=== PATIENT | male | born 1965 | race Caucasian/White ===

== ENCOUNTER 2016-07-24 12:26 | Emergency (ER) | payer MEDICARE ==
[2016-07-24] MEDS ORDERED: CLONIDINE HCL 0.1 MG TABLET PO ONE (13:12)
[2016-07-24] MEDS ORDERED: KETOROLAC TROMETHAMINE 60 MG/2 ML SDV IM ONE (13:12)
--- NOTE | 2016-07-24 13:15 | ER Document Report ---
ED Blood Pressure Problem - General Chief Complaint: High Blood Pressure Stated Complaint: BLOOD PRESSURE PROBLEM Time Seen by Provider: 07/24/16 13:03 Notes: Patient is a 51-year-old male, past medical history hypertension, chronic back pain, presents from the outpatient surgery center after his blood pressure was 171/103 prior to his ankle surgery. They would not do his surgery for blood pressure. He has not taken his clonidine for the past year and does not have a primary care physician. In addition, he noticed a left breast lump over the past few weeks. He denies numbness, tingling, chest pain, abdominal pain, nausea , vomiting, weakness, numbness or headache. TRAVEL OUTSIDE OF THE [place] IN LAST 30 DAYS: No - Related Data Allergies/Adverse Reactions: aspirin Allergy (Unknown, Verified 07/24/16 12:31) GI upset Past Medical History - General Information source: Patient - Social History Smoking Status: Current Every Day Smoker Family History: Hypertension, Malignancy. denies: CAD, COPD, CVA, DM, Hyperlipidemia, Thyroid Disfunction Patient has suicidal ideation: No Patient has homicidal ideation: No - Past Medical History Cardiac Medical History: Reports: Hx Hypertension Denies: Hx Coronary Artery Disease, Hx Heart Attack Pulmonary Medical History: Denies: Hx Asthma, Hx Bronchitis, Hx COPD, Hx Pneumonia Neurological Medical History: Denies: Hx Cerebrovascular Accident, Hx Seizures Renal/ Medical History: Denies: Hx Peritoneal Dialysis GI Medical History: Reports: Hx Gastritis, Hx Gastroesophageal Reflux Disease Musculoskeltal Medical History: Reports Hx Arthritis, Reports Hx Musculoskeletal Deformity, Reports Hx Musculoskeletal Trauma - ribs nose fingers and toes Skin Medical History: Reports Hx Cellulitis Psychiatric Medical History: Reports: Hx Anxiety, Hx Depression, Hx Schizoaffective Disorder, Hx Schizophrenia Traumatic Medical History: Reports: Hx Fractures Past Surgical History: Reports: Hx Orthopedic Surgery - left knee shrapnil removed - Immunizations Hx Diphtheria, Pertussis, Tetanus Vaccination: No Review of Systems - Review of Systems Notes: REVIEW OF SYSTEMS: CONSTITUTIONAL: -fevers, -chills EENT: -eye pain, -difficulty swallowing, -nasal congestion CARDIOVASCULAR:-chest pain, -syncope. RESPIRATORY: -cough, -SOB GASTROINTESTINAL: -abdominal pain, -nausea, -vomiting, -diarrhea GENITOURINARY: -dysuria, -hematuria MUSCULOSKELETAL: -back pain, -neck pain SKIN: +left breast lump, -rash or skin lesions. HEMATOLOGIC: -easy bruising or bleeding. LYMPHATIC: -swollen, enlarged glands. NEUROLOGICAL: -altered mental status or loss of consciousness, -headache, - neurologic symptoms PSYCHIATRIC: -anxiety, -depression. ALL OTHER SYSTEMS REVIEWED AND NEGATIVE. Physical Exam - Vital signs Vitals: Temp Pulse Resp BP Pulse Ox 98.0 F 102 H 18 171/114 H 99 07/24/16 12:35 07/24/16 12:35 07/24/16 12:35 07/24/16 12:35 07/24/16 12:35 - Notes Notes: PHYSICAL EXAMINATION: GENERAL: Well-appearing, well-nourished and in no acute distress. HEAD: Atraumatic, normocephalic. EYES: Pupils equal round and reactive to light, extraocular movements intact, sclera anicteric, conjunctiva are normal. ENT: nares patent, oropharynx clear without exudates. Moist mucous membranes. NECK: Normal range of motion, supple without lymphadenopathy LUNGS: Breath sounds clear to auscultation bilaterally and equal. No wheezes rales or rhonchi. HEART: Regular rate and rhythm without murmurs ABDOMEN: Soft, nontender, normoactive bowel sounds. No guarding, no rebound. No masses appreciated. EXTREMITIES: Normal range of motion, no pitting or edema. No cyanosis. NEUROLOGICAL: Cranial nerves grossly intact. Normal speech, normal gait. Normal sensory and motor exams. PSYCH: Normal mood, normal affect. SKIN: Left breast lump, warm, Dry, normal turgor, no rashes or lesions noted. Course - Re-evaluation Re-evalutation: Pt with asymptomatic hypertension. He has not taken his clonidine for the past year. We will switch him to amlodipine because this will not cause rebound hypertension. Also instructed him to follow-up with the health center for further evaluation of his blood pressure and breast lump. - Vital Signs Vital signs: Temp Pulse Resp BP Pulse Ox 98.0 F 102 H 18 171/114 H 99 07/24/16 12:35 07/24/16 12:35 07/24/16 12:35 07/24/16 12:35 07/24/16 12:35 Discharge - Discharge Clinical Impression: Mass of breast Hypertension Qualifiers: Hypertension type: unspecified secondary hypertension Qualified Code(s): I15.9 - Secondary hypertension, unspecified Condition: Stable Disposition: HOME, SELF-CARE Additional Instructions: HIGH BLOOD PRESSURE REQUIRING TREATMENT: Your blood pressure is high. This is called "hypertension." Today's reading was 171/104 (normal is less than 140/90). Your history and exam suggest that this is not a temporary problem. You need treatment of your blood pressure. If left untreated, high blood pressure greatly increases your risk of heart attack and stroke. Please don't ignore this problem. If you have blood pressure medicine but aren't using it regularly, start taking it again. Some simple things you can do to help are: Get some aerobic exercise for at least 20 minutes on a daily basis. (See your doctor before beginning any new exercise program.) Eat a low-fat diet. Lose excess weight. Avoid salty foods and avoid adding salt to any of the foods you eat. Avoid diet pills, decongestants, "energizing" herbs, and other medicines that elevate blood pressure. There are many different medicines that treat blood pressure. If your medication causes unpleasant side effects, call your doctor. There are others you can try. Treating hypertension is a life-long investment in your health. CLONIDINE (CATAPRES): Clonidine is blood-pressure medicine. It works in your brain, making the nervous system relax the blood vessels. This medicine can also be used for symptoms of narcotic withdrawal. Clonidine frequently causes dry mouth, drowsiness, and dizziness. These symptoms go away as you continue to use it. Rest for the first couple of days. Don't drive or use machinery until you're back to normal. Never stop clonidine suddenly! There can be a "rebound" severe increase in blood pressure, headache, and agitation. Be sure you always have enough of the medicine. Call the doctor if you have any new symptoms such as skin rash, weakness, severe lightheadedness, chest pain, headache, or depression. CALCIUM CHANNEL BLOCKERS: A medication of the calcium channel nikolay type has been prescribed for you. Examples of this type of medicine are Calan, Isoptin, Procardia, and Cardizem. These medicines have a variety of uses, including prevention of angina attacks, treatment of blood pressure, regulation of certain heart rhythm problems, and prevention of migraine headaches. Calcium channel blockers work by interfering with the flow of calcium in cell membranes. This results in dilation of blood vessels, and slowing of electrical conduction in the heart. A slight dizziness (due to a fall in blood pressure) may occur with the first dose, and sometimes even with later doses. This may make you prone to dizziness if you stand up suddenly. Call the doctor if lightheadedness is severe, or if you develop palpitations, shortness of breath, or any other new or alarming symptoms. FOLLOW-UP CARE: If you have been referred to a physician for follow-up care, call the physician s office for an appointment as you were instructed or within the next two days. If you experience worsening or a significant change in your symptoms, notify the physician immediately or return to the Emergency Department at any time for re-evaluation. Prescriptions: Amlodipine Besylate 5 mg PO DAILY #30 tab Referrals: [facility] [NO LOCAL MD] - Follow up as needed
[2016-07-24 13:39] VITALS: BP 175/121
== END 2016-07-24 13:47 | disposition home or self-care (01) ==
LOC: ER 12:26
DX: N63 Unspecified lump in breast (principal); I10 Essential (primary) hypertension; G89.29 Other chronic pain; M54.9 Dorsalgia, unspecified; F17.200 Nicotine dependence, unspecified, uncomplicated; Z88.6 Allergy status to analgesic agent
CPT/HCPCS: 99283; 96372; A9270; J1885

== ENCOUNTER 2016-09-21 12:53 | Emergency (ER) | payer MEDICARE ==
[2016-09-21] MEDS ORDERED: LIDOCAINE 5% (700 MG) TRANSDERMAL ADH..PATCH TP ONE (13:45)
[2016-09-21] MEDS ORDERED: KETOROLAC TROMETHAMINE 60 MG/2 ML SDV IM ONE (13:45)
--- NOTE | 2016-09-21 14:25 | ER Document Report ---
HPI - HPI Patient complains to provider of: back and knee pain Onset: Other - 4 days Onset/Duration: Persistent Quality of pain: Achy Pain Level: 4 Context: Patient states that he has a history of chronic low back pain as well as chronic knee pain due to arthritis. Patient states that he has a history of herniated disc in his lower back. Patient denies any new injury or trauma. Patient states that pain is typical of flare up that he has had in the past. Patient states that he became homeless 4 days ago and has been sleeping on hard ground. Patient also reports that the weather due to the increase rain has caused flareups of his arthritis pain. Patient denies any fever or recent illness. Associated Symptoms: Other - Low back pain, right knee joint pain. denies: Fever Exacerbated by: Movement Relieved by: Denies Similar symptoms previously: Yes Recently seen / treated by doctor: No - ROS ROS below otherwise negative: Yes Systems Reviewed and Negative: Yes All other systems reviewed and negative - NEURO Neurology: DENIES: Headache, Weakness - CARDIOVASCULAR Cardiovascular: DENIES: Chest pain - RESPIRATORY Respiratory: DENIES: Coughing - GASTROINTESTINAL Gastrointestinal: DENIES: Nausea - MUSCULOSKELETAL Musculoskeletal: REPORTS: Extremity pain, Back Pain - DERM Skin Color: Normal Past Medical History - General Information source: Patient - Social History Smoking Status: Current Every Day Smoker Chew tobacco use (# tins/day): No Frequency of alcohol use: Heavy Drug Abuse: None Occupation: None Lives with: Homeless Family History: Hypertension, Malignancy. denies: CAD, COPD, CVA, DM, Hyperlipidemia, Thyroid Disfunction Patient has suicidal ideation: No Patient has homicidal ideation: No - Past Medical History Cardiac Medical History: Reports: Hx Hypertension Denies: Hx Coronary Artery Disease, Hx Heart Attack Pulmonary Medical History: Denies: Hx Asthma, Hx Bronchitis, Hx COPD, Hx Pneumonia Neurological Medical History: Denies: Hx Cerebrovascular Accident, Hx Seizures Renal/ Medical History: Denies: Hx Peritoneal Dialysis GI Medical History: Reports: Hx Gastritis, Hx Gastroesophageal Reflux Disease Musculoskeltal Medical History: Reports Hx Arthritis, Reports Hx Musculoskeletal Deformity, Reports Hx Musculoskeletal Trauma - ribs nose fingers and toes Skin Medical History: Reports Hx Cellulitis Psychiatric Medical History: Reports: Hx Anxiety, Hx Depression, Hx Schizoaffective Disorder, Hx Schizophrenia Traumatic Medical History: Reports: Hx Fractures Past Surgical History: Reports: Hx Orthopedic Surgery - left knee shrapnil removed - Immunizations Hx Diphtheria, Pertussis, Tetanus Vaccination: No Vertical Provider Document - CONSTITUTIONAL Agree With Documented VS: Yes Exam Limitations: No Limitations General Appearance: WD/WN, No Apparent Distress - INFECTION CONTROL TRAVEL OUTSIDE OF THE [place] IN LAST 30 DAYS: No - HEENT HEENT: Atraumatic, Normocephalic - NECK Neck: Normal Inspection, Supple. negative: Lymphadenopathy-Left, Lymphadenopathy-Right - RESPIRATORY Respiratory: Breath Sounds Normal, No Respiratory Distress O2 Sat by Pulse Oximetry: 97 - CARDIOVASCULAR Cardiovascular: Regular Rhythm, No Murmur, Tachycardia - BACK Back: Abnormal Inspection - Lower lumbar tenderness, no step-off or deformity. negative: CVA Tenderness-Right, CVA Tenderness-Left - MUSCULOSKELETAL/EXTREMETIES Musculoskeletal/Extremeties: MAEW, FROM, Tender - Generalized right knee joint tenderness, no effusion, no laxity with varus or valgus maneuvers, normal skin color and temperature overlying joint, No Edema. negative: Eccymosis - NEURO Level of Consciousness: Awake, Alert, Appropriate Motor/Sensory: No Motor Deficit, No Sensory Deficit Notes: Negative straight leg test bilaterally, no footdrop, no saddle anesthesia - DERM Integumentary: Warm, Dry, No Rash Course - Re-evaluation Re-evalutation: 09/21/16 14:21 The patient has been informed that they may have pre-hypertension or hypertension based on a blood pressure reading in the emergency department. I recommend that patient call the primary care provider listed on their discharge instructions or a physician of their choice by this week to arrange follow-up for further evaluation of possible pre-hypertension her hypertension. 09/21/16 When discussing patient's elevated heart rate, patient states that his heart rate is fast because he feels slightly anxious because he is concerned that he may have body odor, patient denies any palpitations, dyspnea, or chest pain. - Vital Signs Vital signs: Temp Pulse Resp BP Pulse Ox 98.0 F 117 H 18 152/110 H 97 09/21/16 13:14 09/21/16 13:14 09/21/16 13:14 09/21/16 13:14 09/21/16 13:14 Discharge - Discharge Clinical Impression: Hx of chronic arthritis, Hx of essential hypertension Chronic back pain Qualifiers: Back pain location: low back pain Back pain laterality: midline Sciatica presence: without sciatica Qualified Code(s): M54.5 - Low back pain Knee pain, chronic Qualifiers: Laterality: right Qualified Code(s): M25.561 - Pain in right knee Condition: Stable Disposition: HOME, SELF-CARE Instructions: Arthritis ([facility]), Chronic Back Pain ([facility]), Low Back Pain ([facility]), Ultram ([facility]), Family Physicians / Practices Additional Instructions: Return immediately for any new or worsening symptoms Followup with your primary care provider, call tomorrow to make a followup appointment Prescriptions: Naproxen [Naprosyn 250 Nmg Tablet] 1 tab PO BID #14 tablet Tramadol HCl [Ultram 50 mg Tablet] 50 mg PO ASDIR PRN #12 tablet PRN Reason: Forms: Elevated Blood Pressure Referrals: LIUDMILA CLEARY MD [Primary Care Provider] - Follow up tomorrow [facility] [Provider Group] - Follow up as needed
[2016-09-21 14:40] VITALS: BP 147/96
== END 2016-09-21 14:40 | disposition home or self-care (01) ==
LOC: ER 12:53
DX: G89.29 Other chronic pain (principal); M25.561 Pain in right knee; M54.5 Low back pain; M17.11 Unilateral primary osteoarthritis, right knee; M47.9 Spondylosis, unspecified; I10 Essential (primary) hypertension; F41.9 Anxiety disorder, unspecified; R00.0 Tachycardia, unspecified; F17.200 Nicotine dependence, unspecified, uncomplicated; Z59.0 Homelessness
CPT/HCPCS: 99283; 96372; J1885

== ENCOUNTER 2016-10-25 09:27 | Emergency (ER) | payer MEDICARE, MEDICAID ==
--- NOTE | 2016-10-25 11:05 | ER Document Report ---
HPI - HPI Pain Level: 5 Context: 51 yo male states that he has a history of chronic low back pain as well as chronic knee pain due to arthritis. Patient states that he has a history of herniated disc in his lower back. Patient denies any new injury or trauma. Has been climbing stairs in his new apartment and this has exacerbated his pain. Patient states that pain is typical of flare up that he has had in the past. no fever, radiculopathy, paresthesia, bowel/bladder dysfunction. pt seen in ED last month for same. reports he gets pain next month and can go see his doctor Associated Symptoms: None Exacerbated by: Movement, Walking Relieved by: Denies Similar symptoms previously: Yes Recently seen / treated by doctor: Yes - ROS Systems Reviewed and Negative: Yes All other systems reviewed and negative - CONSTITUTIONAL Constitutional: DENIES: Fever, Chills - MUSCULOSKELETAL Musculoskeletal: REPORTS: Back Pain - DERM Skin Color: Normal - NURSING COMMENTS Comment: pt c/c chronic back pain, started after he was moving into an apartment with a lot of steps . pt stated back pain radiates down left leg Past Medical History - General Information source: Patient - Social History Smoking Status: Current Every Day Smoker Cigarette use (# per day): No Chew tobacco use (# tins/day): No Frequency of alcohol use: None Drug Abuse: None Lives with: Alone Family History: Hypertension, Malignancy. denies: CAD, COPD, CVA, DM, Hyperlipidemia, Thyroid Disfunction Patient has suicidal ideation: No Patient has homicidal ideation: No - Past Medical History Cardiac Medical History: Reports: Hx Hypertension Denies: Hx Coronary Artery Disease, Hx Heart Attack Pulmonary Medical History: Denies: Hx Asthma, Hx Bronchitis, Hx COPD, Hx Pneumonia Neurological Medical History: Denies: Hx Cerebrovascular Accident, Hx Seizures Renal/ Medical History: Denies: Hx Peritoneal Dialysis GI Medical History: Reports: Hx Gastritis, Hx Gastroesophageal Reflux Disease Musculoskeltal Medical History: Reports Hx Arthritis, Reports Hx Musculoskeletal Deformity, Reports Hx Musculoskeletal Trauma - ribs nose fingers and toes Skin Medical History: Reports Hx Cellulitis Psychiatric Medical History: Reports: Hx Anxiety, Hx Depression, Hx Schizoaffective Disorder, Hx Schizophrenia Traumatic Medical History: Reports: Hx Fractures Past Surgical History: Reports: Hx Orthopedic Surgery - left knee shrapnil removed - Immunizations Hx Diphtheria, Pertussis, Tetanus Vaccination: No Vertical Provider Document - CONSTITUTIONAL Agree With Documented VS: Yes Exam Limitations: No Limitations General Appearance: WD/WN, No Apparent Distress - INFECTION CONTROL TRAVEL OUTSIDE OF THE [place] IN LAST 30 DAYS: No - HEENT HEENT: Atraumatic, PERRLA - NECK Neck: Normal Inspection, Supple - RESPIRATORY O2 Sat by Pulse Oximetry: 96 - CARDIOVASCULAR Cardiovascular: Regular Rate, Regular Rhythm - BACK Back: Abnormal Inspection - lumbar spinal and paraspinal tenderness - MUSCULOSKELETAL/EXTREMETIES Musculoskeletal/Extremeties: MARITZA JURADO - NEURO Level of Consciousness: Awake, Alert, Appropriate - DERM Integumentary: Warm, Dry Course - Re-evaluation Re-evalutation: 10/25/16 11:10 location and character of pain is consistant with pts chronic pain. pt is afebrile, nontoxic. able to walk without difficulty. no neurologic deficits or red flags identified. no emergent imaging indicated today. pt stable for discharge 10/25/16 11:14 pt medicated with Toradol IM. ASA listed as allergy. pt reports that ASA will upset his stomach if he doesnt eat. - Vital Signs Vital signs: Temp Pulse Resp BP Pulse Ox 98.8 F 91 20 166/106 H 96 10/25/16 09:47 10/25/16 09:47 10/25/16 09:47 10/25/16 09:47 10/25/16 09:47 Discharge - Discharge Clinical Impression: Chronic back pain Qualifiers: Back pain location: low back pain Back pain laterality: midline Sciatica presence: without sciatica Qualified Code(s): M54.5 - Low back pain; G89.29 - Other chronic pain Condition: Stable Disposition: HOME, SELF-CARE Instructions: Ice Packs ([facility]), Warm Packs ([facility]), Muscle Relaxers ([facility]), Ibuprofen (General) ([facility]) Additional Instructions: You are having an exacerbation of your chronic back pain Take medications as prescribed Follow up with primary care for further treatment, ER does not manage chronic pain Prescriptions: Ibuprofen [Motrin 800 Mg Tablet] 800 mg PO Q6H #20 tablet Methocarbamol [Robaxin 500 Mg Tablet] 1,000 mg PO Q6 #30 tablet
[2016-10-25] MEDS ORDERED: KETOROLAC TROMETHAMINE 60 MG/2 ML SDV IM ONE (11:12)
[2016-10-25 11:33] VITALS: BP 170/98
== END 2016-10-25 11:29 | disposition home or self-care (01) ==
LOC: ER 09:27
DX: G89.29 Other chronic pain (principal); G54.5 Neuralgic amyotrophy; I10 Essential (primary) hypertension; F17.200 Nicotine dependence, unspecified, uncomplicated
CPT/HCPCS: 99283; 96372; J1885

== ENCOUNTER 2017-06-18 11:02 | Emergency (ER) | payer MEDICARE, MEDICAID ==
[2017-06-18] MEDS ORDERED: KETOROLAC TROMETHAMINE 60 MG/2 ML SDV IM ONE (12:39)
[2017-06-18] MEDS ORDERED: DEXAMETHASONE SOD PHOS INJ 10 MG/1 ML VIAL IM ONE (12:40)
--- NOTE | 2017-06-18 12:48 | ER Document Report ---
ED General - General Chief Complaint: Rash Stated Complaint: POSSIBLE RASH Time Seen by Provider: 06/18/17 11:41 Mode of Arrival: Ambulatory Information source: Patient TRAVEL OUTSIDE OF THE [place] IN LAST 30 DAYS: No - HPI Notes: 52-year-old male presents today with complaints of a rash on his head and on his forearms that has been occurring for the last 3 months. Denies any fevers or chills. Eating and drinking without issues. Patient reports rash is itchy, he tried some Selsun Blue but it did not help. Denies any new travel, new medications or new foods. states pain is patient reports he has chronic back pain, has disc herniations and has been in pain, has tried ibuprofen without relief. Has been using ibuprofen for pain control, pain is 5/10, throbbing. Denies fevers, chills, chest pain,palpitations, shortness of breath, dyspnea, nausea, vomiting, diarrhea, abdominal pain, hematuria,blurred vision, double vision, loss of vision, speech changes, LH, dizziness, syncope, headaches, wheezing, ST, URI, neck pain, weakness, bowel or bladder dysfunction, saddle anesthesia, numbness or tingling in bilateral upper or lower extremities equally , muscle paralysis, weakness in bilateral upper or lower extremities equally. Denies IV drug use. - Related Data Allergies/Adverse Reactions: aspirin Allergy (Unknown, Verified 06/18/17 11:03) GI upset Past Medical History - General Information source: Patient - Social History Smoking Status: Current Every Day Smoker Family History: Hypertension, Malignancy. denies: CAD, COPD, CVA, DM, Hyperlipidemia, Thyroid Disfunction - Past Medical History Cardiac Medical History: Reports: Hx Hypertension Denies: Hx Coronary Artery Disease, Hx Heart Attack Pulmonary Medical History: Denies: Hx Asthma, Hx Bronchitis, Hx COPD, Hx Pneumonia Neurological Medical History: Denies: Hx Cerebrovascular Accident, Hx Seizures Renal/ Medical History: Denies: Hx Peritoneal Dialysis GI Medical History: Reports: Hx Gastritis, Hx Gastroesophageal Reflux Disease Musculoskeltal Medical History: Reports Hx Arthritis, Reports Hx Musculoskeletal Deformity, Reports Hx Musculoskeletal Trauma - ribs nose fingers and toes Skin Medical History: Reports Hx Cellulitis Psychiatric Medical History: Reports: Hx Anxiety, Hx Depression, Hx Schizoaffective Disorder, Hx Schizophrenia Traumatic Medical History: Reports: Hx Fractures Past Surgical History: Reports: Hx Orthopedic Surgery - left knee shrapnil removed - Immunizations Hx Diphtheria, Pertussis, Tetanus Vaccination: No Review of Systems - Review of Systems Notes: ALL OTHER SYSTEMS REVIEWED AND NEGATIVE. Dictation was performed using [employer] ([email or web address]) voice recognition software PHYSICAL EXAMINATION: GENERAL: Well-appearing, well-nourished and in no acute distress. HEAD: Atraumatic, normocephalic. EYES: Pupils equal round and reactive to light, extraocular movements intact, sclera anicteric, conjunctiva are normal. ENT: Nares patent, oropharynx clear without exudates. Moist mucous membranes. NECK: Normal range of motion, supple without lymphadenopathy LUNGS: Breath sounds clear to auscultation bilaterally and equal. No wheezes rales or rhonchi. HEART: Regular rate and rhythm without murmurs ABDOMEN: Soft, nontender, nondistended abdomen. No guarding, no rebound. No masses appreciated. Musculoskeletal: Normal range of motion, no pitting or edema. No cyanosis. Pain with flexion and extension at 30 degrees, negative straight leg test bilaterally. Normal hip rotation. DTR +2 in BLE equally. Strength 5 out of 5 both distally and proximally to bilateral lower extremities normal motor and sensory function in BLE equally. Distal pulses + 2 BLE equally. Noted paraspinal tenderness near L2 and L3. No spinal tenderness. No CVA tenderness bilaterally. Femoral pulses + 2 bilaterally and equally. No abrasions, scars, lacerations, ecchymosis of any recent trauma. normal gait. NEUROLOGICAL: Cranial nerves grossly intact. Normal speech, normal gait. Normal sensory, motor exams PSYCH: anxious SKIN: Warm, Dry, normal turgor, no rashes or lesions noted. Constitutional: No symptoms reported EENT: No symptoms reported Cardiovascular: No symptoms reported Respiratory: No symptoms reported Gastrointestinal: No symptoms reported Genitourinary: No symptoms reported Male Genitourinary: No symptoms reported Musculoskeletal: No symptoms reported Skin: See HPI Hematologic/Lymphatic: No symptoms reported Neurological/Psychological: Anxiety Physical Exam - Vital signs Vitals: Temp Pulse Resp BP Pulse Ox 97.9 F 109 H 20 154/110 H 96 06/18/17 11:25 06/18/17 11:25 06/18/17 11:25 06/18/17 11:25 06/18/17 11:25 Course - Re-evaluation Re-evalutation: 06/18/17 12:54 After performing a Medical Screening Examination, I estimate there is LOW risk for any life threatening rash. At this time the patient looks extremely well and there are no signs of systemic infection, however this may change at any time and the rash may change. I have reevaluated this patient multiple times and no significant life threatening changes are noted. The patient and I have discussed the diagnosis and risks, and we agree with discharging home with close follow-up with the understanding that symptoms and presentations can change. We also discussed returning to the Emergency Department immediately if new or worsening symptoms occur. We have discussed the symptoms which are most concerning (e.g., changing or worsening pain, fever, numbness, weakness, cool or painful digits) that necessitate immediate return. Presentation of a well appearing patient complaining of acute on chronic back pain. No rapid progression of symptoms, systemic symptoms including fevers, chills, weight loss, history of recent bacterial infection, bilateral symptoms, numbness, weakness, difficulty walking, urinary retention or bowel incontinence , personal history of cancer, immunosuppression, diabetes, known AAA, or history of IV drug use. Exam is without point tenderness over vertebral bodies , pulsatile abdominal mass, and patient has symmetric and intact lower extremity strength, sensation, and reflexes without clonus. 2+ symmetric medial malleolar and dorsalis pedis pulses Based on history and physical, I have a very low suspicion of a concerning etiology of pain including epidural compression syndrome, spinal infection, transverse myelitis, malignancy, abdominal aortic aneurysm, renal colic, acute lower extremity claudication, neurogenic claudication, ankylosing spondylitis, or other intra-abdominal process. Due to absence of concerning risk factors in history and physical as well as absence of rapidly progressive, severe, or bilateral symptoms, will defer imaging at this point. Plan to manage conservatively with outpatient analgesia, analgesia, and physical therapy. - Acetaminophen 650 q 4 + ibuprofen 600 q 6 - Continue normal daily activities as tolerated by pain - Provide with standard musculoskeletal back pain exercise instructions - Instruct to follow up with primary care provider if symptoms not improving - Provide careful return precautions and concerning symptoms to watch for. - Vital Signs Vital signs: Temp Pulse Resp BP Pulse Ox 98.4 F 98 20 186/94 H 98 06/18/17 12:22 06/18/17 12:22 06/18/17 12:22 06/18/17 12:22 06/18/17 12:22 Discharge - Discharge Clinical Impression: Eczema of scalp, Chronic back pain Condition: Good Disposition: HOME, SELF-CARE Instructions: Atopic Dermatitis (Eczema) ([facility]) Additional Instructions: Return immediately for any new or worsening symptoms. Follow up with primary care provider, call tomorrow to make followup appointment. Prescriptions: Prednisone [Deltasone 20 mg Tablet] 3 tab PO DAILY 5 Days #15 tablet Triamcinolone Acetonide 1 applic TP BID #80 cream..g. Forms: Return to Work Referrals: KIRSTIN GAUTAM DO [ACTIVE STAFF] - Follow up in 1 week BRITNEY SOMMERS MD [ACTIVE STAFF] - Follow up in 3-5 days
[2017-06-18 13:14] VITALS: BP 186/94
== END 2017-06-18 13:14 | disposition home or self-care (01) ==
LOC: ER 11:02
DX: L30.9 Dermatitis, unspecified (principal); G89.29 Other chronic pain; M54.9 Dorsalgia, unspecified; Z88.6 Allergy status to analgesic agent; F17.200 Nicotine dependence, unspecified, uncomplicated; I10 Essential (primary) hypertension
CPT/HCPCS: 99282; 96372; J1885; J1100

== ENCOUNTER 2017-08-25 09:40 | Emergency (ER) | payer MEDICAID, MEDICARE ==
[2017-08-25] MEDS ORDERED: DEXAMETHASONE SOD PHOS INJ 10 MG/1 ML VIAL IM ONE (10:56)
[2017-08-25] MEDS ORDERED: LIDOCAINE 5% (700 MG) TRANSDERMAL ADH..PATCH TP ONE (10:57)
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
[2017-08-25 11:19] VITALS: BP 152/111
== END 2017-08-25 11:19 | disposition home or self-care (01) ==
LOC: ER 09:40
DX: L40.9 Psoriasis, unspecified (principal); M54.41 Lumbago with sciatica, right side; M54.42 Lumbago with sciatica, left side; G89.29 Other chronic pain; F17.210 Nicotine dependence, cigarettes, uncomplicated; Z88.6 Allergy status to analgesic agent
CPT/HCPCS: 99283; J1100

== ENCOUNTER 2019-08-21 10:24 | Emergency (ER) | payer MEDICARE, MEDICAID ==
--- NOTE | 2019-08-21 11:20 | ER Document Report ---
Entered by ASHLEY DOMINGUEZ SCRIBE 08/21/19 1111 Acting as scribe for:EDDI VACA MD ED General - General Chief Complaint: Abdominal Pain Stated Complaint: ABDOMINAL PAIN,SWELLING Time Seen by Provider: 08/21/19 10:50 Primary Care Provider: BRITNEY SOMMERS MD [Primary Care Provider] - Follow up as needed Mode of Arrival: Ambulatory Information source: Patient Notes: This 54 year old male patient presents to the emergency department today with complaints of an area of swelling and pain that he refers to as a "mass" for the last several years. Patient reports that it has never been worked up before. Patient had a chest CTA done on 01/29/2016 which went down below the area of concern today. Patient has a history of GERD and has not been taking any Prilosec recently because he ran out. Patient demanding a chest xray. TRAVEL OUTSIDE OF THE [place] IN LAST 30 DAYS: No - Related Data Allergies/Adverse Reactions: aspirin Allergy (Unknown, Verified 08/21/19 10:36) GI upset Past Medical History - General Information source: Patient - Social History Smoking Status: Current Every Day Smoker Cigarette use (# per day): Yes Frequency of alcohol use: Social Drug Abuse: None Lives with: Family Family History: Hypertension, Malignancy - Past Medical History Cardiac Medical History: Reports: Hx Hypertension GI Medical History: Reports: Hx Gastritis, Hx Gastroesophageal Reflux Disease Musculoskeletal Medical History: Reports Hx Arthritis, Reports Hx Musculoskeletal Deformity, Reports Hx Musculoskeletal Trauma - ribs nose fingers and toes Skin Medical History: Reports Hx Cellulitis Psychiatric Medical History: Reports: Hx Anxiety, Hx Bipolar Disorder, Hx Depression, Hx Schizoaffective Disorder Traumatic Medical History: Reports: Hx Fractures Past Surgical History: Reports: Hx Orthopedic Surgery - left knee shrapnil removed - Immunizations Hx Diphtheria, Pertussis, Tetanus Vaccination: No Review of Systems - Review of Systems Constitutional: No symptoms reported EENT: No symptoms reported Cardiovascular: No symptoms reported Respiratory: No symptoms reported Gastrointestinal: See HPI, Abdominal pain Genitourinary: No symptoms reported Male Genitourinary: No symptoms reported Musculoskeletal: No symptoms reported Skin: No symptoms reported Hematologic/Lymphatic: No symptoms reported Neurological/Psychological: No symptoms reported -: Yes All other systems reviewed and negative Physical Exam - Vital signs Vitals: Temp Pulse Resp BP Pulse Ox 98.7 F 73 22 H 152/131 H 97 06/18/20 10:29 08/21/19 10:29 08/21/19 10:29 08/21/19 10:29 08/21/19 10:29 - Notes Notes: Physical Exam: General: Alert, appears well. HEENT: Normocephalic. Atraumatic. PERRL. Extraocular movements intact. Oropharynx clear. Neck: Supple. Non-tender. Respiratory: No respiratory distress. Clear and equal breath sounds bilaterally. Cardiovascular: Regular rate and rhythm. Abdominal: Easily reducible umbilical hernia. Patient indicates he has pain with palpation of the epigastrium. No distension. Normal Bowel Sounds. Back: No gross abnormalities. Extremities: Moves all four extremities. Upper extremities: Normal inspection. Normal ROM. Lower extremities: Normal inspection. No edema. Normal ROM. Neurological: Normal cognition. AAOx4. Normal speech. Psychological: Normal affect. Normal Mood. Skin: Warm. Dry. Normal color. Course - Vital Signs Vital signs: Temp Pulse Resp BP Pulse Ox 98.7 F 73 22 H 152/131 H 97 08/21/19 10:35 08/21/19 10:29 08/21/19 10:29 08/21/19 10:29 08/21/19 10:29 - Laboratory Result Diagrams: 08/21/19 11:15 08/21/19 11:15 Laboratory results interpreted by me: 08/21/19 08/21/19 08/21/19 11:15 11:15 11:15 RDW 15.9 H Sodium 134.5 L Carbon Dioxide 21 L Total Bilirubin 1.5 H Urine Protein 100 H - Diagnostic Test Radiology reviewed: Image reviewed, Reports reviewed - Acute abdominal series shows nonspecific bowel gas pattern with a few scattered small bowel air-fluid levels. Discharge - Discharge Clinical Impression: Small bowel ileus Abdominal pain Qualifiers: Abdominal location: upper abdomen, unspecified Qualified Code(s): R10.10 - Upper abdominal pain, unspecified Condition: Stable Disposition: HOME, SELF-CARE Additional Instructions: Abdominal Pain There are many causes of abdominal pain. Pain can mean a serious problem requiring surgery (such as appendicitis). It can also be an innocent problem that goes away on its own (such as a viral infection). Often, time must pass to determine the cause of pain. The physician does not feel that hospitalization is necessary, at present. Things may change within the next 24 hours. Call the doctor or come back for re- examination if any problems occur, such as: (1) Pain that becomes more severe, steady, or becomes concentrated in one specific area. Also, pain that is more severe with movement or coughing. (2) Vomiting that persists or becomes more frequent. (3) Blood in the vomitus, urine, or bowel movements. Blood in the stool may have a tarry or black appearance. (4) Shaking chills or fever greater than 100 degrees F. (5) The abdomen becomes more distended or swollen. (6) Bowel movements cease. (7) Failure to improve as expected. Your evaluation today shows that your intestines have slowed down and not moving fluid through as quickly as normal. This is called a small bowel ileus. It is usually caused by a viral type infection and lasts for 1 to 2 days. There was no evidence of any mass in your abdomen, you have probably just feeling the dilated loops of small bowel. You should drink plenty of cool clear liquids today and rest. Be sure to start taking your Prilosec/omeprazole for the epigastric/heartburn symptoms. Follow-up with your primary care provider if not improving. RETURN TO THE EMERGENCY ROOM IF ANY NEW OR WORSENING SYMPTOMS. Referrals: BRITNEY SOMMERS MD [Primary Care Provider] - Follow up as needed I personally performed the services described in the documentation, reviewed and edited the documentation which was dictated to the scribe in my presence, and it accurately records my words and actions.
[2019-08-21 11:28] LABS: HEMATOCRIT 43.6 % (37.9-51.0); HEMOGLOBIN 14.5 g/dL (13.5-17.0); MEAN CORPUSCULAR HEMOGLOBIN 29.4 pg (27.0-33.4); MEAN CORPUSCULAR HGB CONC 33.3 g/dL (32.0-36.0); MEAN CORPUSCULAR VOLUME 88 fl (80-97); PLATELET COUNT 261 10^3/uL (150-450); RED BLOOD COUNT 4.93 10^6/uL (4.35-5.55); RED CELL DISTRIBUTION WIDTH 15.9 % (11.5-14.0); WHITE BLOOD COUNT 10.1 10^3/uL (4.0-10.5)
[2019-08-21 11:30] LABS: APPEARANCE,URINE CLEAR; BILIRUBIN,URINE NEGATIVE (NEGATIVE); COLOR,URINE YELLOW; GLUCOSE, URINE NEGATIVE (NEGATIVE); KETONES,URINE NEGATIVE (NEGATIVE); LEUKOCYTE ESTERASE,URINE NEGATIVE (NEGATIVE); NITRITE,URINE NEGATIVE (NEGATIVE); PROTEIN,URINE 100 mg/dL (NEGATIVE); URINE SPECIFIC GRAVITY 1.004; UROBILINOGEN,URINE NEGATIVE mg/dL (<2.0)
[2019-08-21 11:51] LABS: ABSOLUTE MONOCYTES # (MANUAL) 0.6 10^3/uL (0.1-1.4); ANISOCYTOSIS SLIGHT; BASOPHILS % (MANUAL) 0 % (0-2); EOSINOPHILS % (MANUAL) 1 % (0-6); LYMPHOCYTES % (MANUAL) 17 % (13-45); MONOCYTES % (MANUAL) 6 % (3-13); PLATELET COMMENT ADEQUATE; SEGMENTED NEUTROPHILS % (MAN) 73 % (42-78); TOTAL CELLS COUNTED 100
[2019-08-21 11:57] LABS: ALBUMIN 3.9 g/dL (3.5-5.0); ALKALINE PHOSPHATASE 52 U/L (38-126); ANION GAP 10 (5-19); ASPARTATE AMINO TRANSFERASE 35 U/L (17-59); BILIRUBIN,DIRECT 0.1 mg/dL (0.0-0.4); BILIRUBIN,TOTAL 1.5 mg/dL (0.2-1.3); BLOOD UREA NITROGEN 10 mg/dL (7-20); CALCIUM 9.4 mg/dL (8.4-10.2); CARBON DIOXIDE 21 mmol/L (22-30); CHLORIDE 104 mmol/L (98-107); GLUCOSE 100 mg/dL (75-110); POTASSIUM 4.1 mmol/L (3.6-5.0); TOTAL PROTEIN 6.8 g/dL (6.3-8.2)
--- NOTE | 2019-08-21 11:58 | RADIOLOGY REPORT (SQ) ---
EXAM DESCRIPTION: ACUTE ABDOMEN SERIES IMAGES COMPLETED DATE/TIME: 08/21/2019 11:42 am REASON FOR STUDY: Upper abdominal pain and swelling COMPARISON: None. NUMBER OF VIEWS: Three views. TECHNIQUE: PA chest, supine abdomen and upright/decubitus abdomen radiographic images acquired. LIMITATIONS: None. FINDINGS: CHEST: Lungs clear of infiltrates. FREE AIR: None. No abnormal gas collections. BOWEL GAS PATTERN: Few scattered small bowel loops with air fluid levels. No distended large or small bowel loops. CALCIFICATIONS: No suspicious calcifications. HARDWARE: None in the abdomen. SOFT TISSUES: No gross mass or suggestion of organomegaly. BONES: No acute fracture. No worrisome bone lesions. OTHER: No other significant finding. IMPRESSION: NONSPECIFIC BOWEL GAS PATTERN WITHOUT EVIDENCE FOR OBSTRUCTION. TECHNICAL DOCUMENTATION: JOB ID: [id number] 2010 [employer]- All Rights Reserved Reading location - IP/workstation name: [email or web address]
[2019-08-21 12:27] VITALS: BP 125/95
== END 2019-08-21 12:30 | disposition home or self-care (01) ==
LOC: ER 10:24
DX: K56.7 Ileus, unspecified (principal); K42.9 Umbilical hernia without obstruction or gangrene; R10.13 Epigastric pain; F17.210 Nicotine dependence, cigarettes, uncomplicated; I10 Essential (primary) hypertension; Z88.8 Allergy status to other drugs, medicaments and biological substances
CPT/HCPCS: 36415; 74022; 80053; 81001; 83690; 85025; 99284

== ENCOUNTER 2019-11-08 16:01 | Inpatient (IN) | payer MEDICARE, MEDICAID ==
--- NOTE | 2019-11-08 16:15 | ER Document Report ---
ED Medical Screen (RME) - General Chief Complaint: Back Pain Stated Complaint: BACK PAIN, RIGHT LEG PAIN Time Seen by Provider: 11/08/19 16:06 Primary Care Provider: BRITNEY SOMMERS MD [Primary Care Provider] - Follow up as needed Mode of Arrival: Medic Information source: Patient Notes: 54-year-old male presented to ED for complaint of fatigue body aches all over h eadache short of breath back pain radiating to the legs neck pain radiating to the head. He is obviously inebriated. He states he has a history of back pain arthritis and palpitations. He states he smokes about 8 cigarettes a day drinks about [address] to [address]. And then he was hurting so bad all over and his body was hurting all over and he is so fatigued that he came to the emergency room. 24 ounce beers a day and has smoked marijuana in the past but not recently. He is alert oriented very talkative. He did come in via EMS. He stated that he went to the airport to get a ticket to move and when he got there they told him one way ticket was $583 and he could not afford that. He states between neighbors and cabs he is spent over $150 and that he did not have a place for and he is so fatigued at this time that he came to the emergency room. I have greeted and performed a rapid initial assessment of this patient. A comprehensive ED assessment and evaluation of the patient, analysis of test results and completion of medical decision making process will be conducted by an additional ED providers. TRAVEL OUTSIDE OF THE [place] IN LAST 30 DAYS: No - Related Data Allergies/Adverse Reactions: aspirin Allergy (Unknown, Verified 08/21/19 10:36) GI upset Past Medical History - Past Medical History Cardiac Medical History: Reports: Hx Hypertension Denies: Hx Coronary Artery Disease, Hx Heart Attack Pulmonary Medical History: Denies: Hx Asthma, Hx Bronchitis, Hx COPD, Hx Pneumonia Neurological Medical History: Denies: Hx Cerebrovascular Accident, Hx Seizures Renal/ Medical History: Denies: Hx Peritoneal Dialysis GI Medical History: Reports: Hx Gastritis, Hx Gastroesophageal Reflux Disease Musculoskeltal Medical History: Reports Hx Arthritis, Reports Hx Musculoskeletal Deformity, Reports Hx Musculoskeletal Trauma - ribs nose fingers and toes Skin Medical History: Reports Hx Cellulitis Psychiatric Medical History: Reports: Hx Anxiety, Hx Bipolar Disorder, Hx Depression, Hx Schizoaffective Disorder, Hx Schizophrenia Traumatic Medical History: Reports: Hx Fractures Past Surgical History: Reports: Hx Orthopedic Surgery - left knee shrapnil removed - Immunizations Hx Diphtheria, Pertussis, Tetanus Vaccination: No Doctor's Discharge - Discharge Referrals: BRITNEY SOMMERS MD [Primary Care Provider] - Follow up as needed
[2019-11-08] MEDS ORDERED: NORMAL SALINE 1000 ML 1,000 ML IV ONE ×2 (17:08→19:05)
[2019-11-08] MEDS ORDERED: ONDANSETRON HCL INJ/PF 4 MG/2 ML SDV IV ONE (17:10)
[2019-11-08] MEDS ORDERED: HYDROMORPHONE HCL INJ/PF 2 MG/ML AMPULE IV ONE (17:10)
[2019-11-08] MEDS ORDERED: LORAZEPAM INJ 2 MG/1 ML VIAL IV ONE (17:11)
--- NOTE | 2019-11-08 17:23 | RADIOLOGY REPORT (SQ) ---
EXAM DESCRIPTION: CHEST SINGLE VIEW IMAGES COMPLETED DATE/TIME: 11/08/2019 4:04 pm REASON FOR STUDY: Short of breath COMPARISON: 01/29/2016 EXAM PARAMETERS: NUMBER OF VIEWS: One view. TECHNIQUE: Single frontal radiographic view of the chest acquired. RADIATION DOSE: NA LIMITATIONS: None. FINDINGS: LUNGS AND PLEURA: Lungs are hyperinflated. No opacities, masses or pneumothorax. No pleu ral effusion. MEDIASTINUM AND HILAR STRUCTURES: No masses. Contour normal. HEART AND VASCULAR STRUCTURES: Heart normal in size. Normal vasculature. BONES: No acute findings. HARDWARE: None in the chest. OTHER: No other significant finding. IMPRESSION: NO ACUTE RADIOGRAPHIC FINDING IN THE CHEST. TECHNICAL DOCUMENTATION: JOB ID: [id number] 2010 [employer]- All Rights Reserved Reading location - IP/workstation name: [id number]
[2019-11-08 17:27] LABS: ABSOLUTE BASOPHILS # (AUTO) 0.1 10^3/uL (0.0-0.2); ABSOLUTE EOSINOPHILS # (AUTO) 0.1 10^3/uL (0.0-0.6); ABSOLUTE LYMPHOCYTES (AUTO) 2.2 10^3/uL (0.5-4.7); ABSOLUTE MONOCYTES (AUTO) 0.7 10^3/uL (0.1-1.4); ABSOLUTE NEUT (AUTO) 4.4 10^3/uL (1.7-8.2); BASOPHILS % (AUTO) 0.7 % (0-2); HEMATOCRIT 40.6 % (37.9-51.0); LYMPHOCYTES % (AUTO) 29.8 % (13-45); MEAN CORPUSCULAR HEMOGLOBIN 30.1 pg (27.0-33.4); MEAN CORPUSCULAR HGB CONC 34.5 g/dL (32.0-36.0); MEAN CORPUSCULAR VOLUME 87 fl (80-97); MONOCYTES % (AUTO) 9.1 % (3-13); PLATELET COUNT 188 10^3/uL (150-450); RED BLOOD COUNT 4.65 10^6/uL (4.35-5.55); RED CELL DISTRIBUTION WIDTH 16.5 % (11.5-14.0); SEGMENTED NEUTROPHILS % (AUTO) 58.4 % (42-78); TOTAL CELLS COUNTED % (AUTO) 100 %; WHITE BLOOD COUNT 7.5 10^3/uL (4.0-10.5)
[2019-11-08 17:45] LABS: ALBUMIN 4.1 g/dL (3.5-5.0); ALCOHOL 72 mg/dL (NONE DETECTED); ALKALINE PHOSPHATASE 58 U/L (38-126); ANION GAP 12 (5-19); ASPARTATE AMINO TRANSFERASE 54 U/L (17-59); BILIRUBIN,DIRECT 0.4 mg/dL (0.0-0.4); BILIRUBIN,TOTAL 1.4 mg/dL (0.2-1.3); BLOOD UREA NITROGEN 22 mg/dL (7-20); CALCIUM 9.3 mg/dL (8.4-10.2); CARBON DIOXIDE 20 mmol/L (22-30); CHLORIDE 106 mmol/L (98-107); CREATINE KINASE 777 U/L (55-170); GLUCOSE 102 mg/dL (75-110); POTASSIUM 4.3 mmol/L (3.6-5.0); TOTAL PROTEIN 6.7 g/dL (6.3-8.2)
[2019-11-08 18:06] LABS: APPEARANCE,URINE CLEAR; BILIRUBIN,URINE NEGATIVE (NEGATIVE); COLOR,URINE YELLOW; GLUCOSE, URINE NEGATIVE (NEGATIVE); KETONES,URINE NEGATIVE (NEGATIVE); LEUKOCYTE ESTERASE,URINE NEGATIVE (NEGATIVE); NITRITE,URINE NEGATIVE (NEGATIVE); PROTEIN,URINE 30 mg/dL (NEGATIVE); URINE SPECIFIC GRAVITY 1.015; UROBILINOGEN,URINE NEGATIVE mg/dL (<2.0)
[2019-11-08 18:19] LABS: URINE BARBITURATES SCREEN NEGATIVE; URINE BENZODIAZEPINES SCREEN NEGATIVE; URINE MARIJUANA (THC) SCREEN NEGATIVE; URINE METHADONE SCREEN NEGATIVE; URINE PHENCYCLIDINE SCREEN NEGATIVE
[2019-11-08 18:23] LABS: URINE COCAINE SCREEN UNCONFIRMED POSITIVE
--- NOTE | 2019-11-08 20:42 | EKG REPORT ---
SEVERITY:- ABNORMAL ECG - ATRIAL FIBRILLATION, V-RATE 103-165 ABNRM R PROG, CONSIDER ASMI OR LEAD PLACEMENT BORDERLINE T ABNORMALITIES, INFERIOR LEADS BORDERLINE PROLONGED QT INTERVAL : Confirmed by: Dm Cherry MD 08-Nov-2019 20:42:16
[2019-11-08 20:55] LABS: ARTERIAL BLOOD BASE EXCESS -6.2 mmol/L; ARTERIAL BLOOD H2CO3 1.11 mmol/L (1.05-1.35); ARTERIAL BLOOD HCO3 19.1 mmol/L (20-24); ARTERIAL BLOOD O2 SATURATION 97.3 % (94-98); ARTERIAL BLOOD PCO2 36.9 mmHg (35-45); ARTERIAL BLOOD PH 7.33 (7.35-7.45); ARTERIAL BLOOD PO2 100.6 mmHg (80-100); ARTERIAL BLOOD TOTAL CO2 20.2 mmol/L (23-27)
--- NOTE | 2019-11-08 20:55 | ER Document Report ---
ED General Pain - General Chief Complaint: Pain All Over Stated Complaint: BACK PAIN, RIGHT LEG PAIN Time Seen by Provider: 11/08/19 16:06 Primary Care Provider: BRITNEY SOMMERS MD [Primary Care Provider] - Follow up as needed Mode of Arrival: Medic Notes: This 54-year-old man presents to the emergency department with complaint of back pain leg pain and chest tightness. States his symptoms began this afternoon. Currently he went to the airport with a plan to travel, however found that the cost of the tickets were more than he expected. He began having worsening back pain with pain going into his left leg. He has a history of chronic back pain and sciatic symptoms. He complains of fatigue, body aches all over headache, short of breath, back pain radiating to the legs and neck pain radiating to the head. He admits to a history of cigarette smoking and alcohol use. TRAVEL OUTSIDE OF THE [place] IN LAST 30 DAYS: No - Related Data Allergies/Adverse Reactions: aspirin Allergy (Unknown, Verified 08/21/19 10:36) GI upset Past Medical History - General Information source: Patient - Social History Smoking Status: Current Every Day Smoker Frequency of alcohol use: Heavy Drug Abuse: Marijuana Family History: Hypertension, Malignancy - Past Medical History Cardiac Medical History: Reports: Hx Hypertension Denies: Hx Coronary Artery Disease, Hx Heart Attack Pulmonary Medical History: Denies: Hx Asthma, Hx Bronchitis, Hx COPD, Hx Pneumonia Neurological Medical History: Denies: Hx Cerebrovascular Accident, Hx Seizures Renal/ Medical History: Denies: Hx Peritoneal Dialysis GI Medical History: Reports: Hx Gastritis, Hx Gastroesophageal Reflux Disease Musculoskeletal Medical History: Reports Hx Arthritis, Reports Hx Musculoskeletal Deformity, Reports Hx Musculoskeletal Trauma - ribs nose fingers and toes Skin Medical History: Reports Hx Cellulitis Psychiatric Medical History: Reports: Hx Anxiety, Hx Bipolar Disorder, Hx Depression, Hx Schizoaffective Disorder, Hx Schizophrenia Traumatic Medical History: Reports: Hx Fractures Past Surgical History: Reports: Hx Orthopedic Surgery - left knee shrapnil removed - Immunizations Hx Diphtheria, Pertussis, Tetanus Vaccination: No Review of Systems - Review of Systems Notes: Constitutional: Negative for fever. HENT: Negative for sore throat. Eyes: Negative for visual changes. Cardiovascular: Negative for chest pain. Respiratory: Negative for shortness of breath. Gastrointestinal: Negative for abdominal pain, vomiting or diarrhea. Genitourinary: Negative for dysuria. Musculoskeletal: See HPI Skin: Negative for rash. Neurological: Negative for headaches, weakness or numbness. 10 point ROS negative except as marked above and in HPI. Physical Exam - Vital signs Vitals: Temp Pulse Resp BP Pulse Ox 98.4 F 130 H 16 132/84 H 96 11/08/19 16:07 11/08/19 16:07 11/08/19 16:07 11/08/19 16:07 11/08/19 16:07 - Notes Notes: PHYSICAL EXAMINATION: Physical Exam: General: Disheveled 54-year-old man in complaining of back pain and feeling weak. HEENT: NC/AT, pupils equal round and reactive to light, MM moist,nares clear, oropharynx clear, airway patent Neck: supple, no adenopathy, no masses. Good range of motion Lungs: clear, no wheezing, no rales no rhonchi CVS: Irregularly irregular tachycardia, GI: Normal bowel sounds, no masses, nontender and no guarding or rebound. Back: Tenderness in the lower lumbar region, no signs of recent trauma. Ext: No edema, clubbing or cyanosis. Neuro: Alert and responsive, moving all 4 extremities on command, cranial nerves intact, no focal findings Skin: Intact no open lesions, no rash Course - Re-evaluation Re-evalutation: 11/08/19 23:16 Patient was given medication for back pain, he continues to have atrial fibrillation with RVR, review of his previous EKG reveals normal sinus rhythm, patient able to communicate and express that he is never been diagnosed with atrial fibrillation and is on a blood thinner. Previous EKG dated 07/24/2016 reveals a normal sinus rhythm with nonspecific T wave abnormality noted in the inferior lead and a borderline prolonged QT interval. EKG today reveals atrial fibrillation rate of 130. Continues to note a borderline T wave abnormality and a borderline prolonged QT interval. I explained to the patient that new onset atrial fibrillation will require that we treat and also examine why his heart rhythm has changed. He is willing to stay in the hospital for further evaluation and treatment. - Vital Signs Vital signs: Temp Pulse Resp BP Pulse Ox 98.2 F 130 H 26 H 105/81 94 11/08/19 20:01 11/08/19 16:07 11/09/19 00:16 11/09/19 00:16 11/09/19 00:16 - Laboratory Result Diagrams: 11/08/19 17:05 11/08/19 17:05 Laboratory results interpreted by me: 11/08/19 11/08/19 11/08/19 17:05 17:05 17:34 RDW 16.5 H ABG pH ABG pO2 ABG HCO3 ABG Total CO2 Carbon Dioxide 20 L BUN 22 H Total Bilirubin 1.4 H Creatine Kinase 777 H Urine Protein 30 H 11/08/19 11/08/19 20:40 23:14 RDW ABG pH 7.33 L ABG pO2 100.6 H ABG HCO3 19.1 L ABG Total CO2 20.2 L Carbon Dioxide BUN Total Bilirubin Creatine Kinase 599 H Urine Protein - Diagnostic Test Radiology reviewed: Image reviewed, Reports reviewed - EKG Interpretation by Me Rhythm: A.Fib - EKG interpreted by Dr. Avilez: Atrial fibrillation, ventricular rate 130. Abnormal R wave progression, borderline T wave abnormality, inferior leads, borderline prolonged QT interval. No acute ST-T wave findings, no ischemic changes. Compared to prior EKG dated 07/24/2016 patient has converted from sinus rhythm to atrial fibrillation with RVR. Discharge - Discharge Clinical Impression: Atrial fibrillation with RVR, Alcohol abuse Schizoaffective disorder Qualifiers: Schizoaffective disorder type: unspecified Qualified Code(s): F25.9 - Schizoaffective disorder, unspecified Condition: Good Disposition: ADMITTED INPATIENT Admitting Provider: Jeanna (Hospitalist) Unit Admitted: IMCU Referrals: BRITNEY SOMMERS MD [Primary Care Provider] - Follow up as needed
[2019-11-08 21:01] LABS: ARTERIAL BLOOD FIO2 2L
[2019-11-08] MEDS ORDERED: DILTIAZEM HCL INJ 25 MG/5 ML VIAL IV ONE (22:23)
[2019-11-08] MEDS ORDERED: DILTIAZEM HCL/D5W 125 MG/125 ML RTUINJ IV PRN (22:24)
[2019-11-08 23:03] LABS: FREE T4 (FREE THYROXINE) 1.19 ng/dL (0.78-2.19)
[2019-11-08] MEDS ORDERED: KETOROLAC TROMETHAMINE INJ/PF 30 MG/1 ML SDV IV ONE (23:09)
[2019-11-08 23:17] LABS: THYROID STIMULATING HORMONE 0.95 uIU/mL (0.47-4.68)
--- NOTE | 2019-11-08 23:53 | RADIOLOGY REPORT (SQ) ---
EXAM DESCRIPTION: XR CHEST 1 VIEW COMPLETED DATE/TME: 11/08/2019 23:19 CLINICAL HISTORY: 54 years, Male, Chest pain, shortness of breath COMPARISON: X-ray chest 11/08/2019 at 4:52 PM NUMBER OF VIEWS: TECHNIQUE: LIMITATIONS: None. FINDINGS: There is possible emphysema. No evidence of pulmonary infiltrate or pleural effusion. The heart and mediastinum are unremarkable. Pulmonary vascularity appears normal. There is no significant change, as compared with the prior x-ray(s). IMPRESSION: Possible emphysema. copyright 2010 [employer]- All Rights Reserved
[2019-11-09] MEDS ORDERED: DILTIAZEM HCL/D5W 125 MG/125 ML RTUINJ IV PRN (01:20)
[2019-11-09] MEDS ORDERED: GUAIFENESIN SYRP 200 MG/10 ML UDC PO PRN (01:21)
[2019-11-09] MEDS ORDERED: ACETAMINOPHEN 325 MG TABLET PO PRN (01:21)
[2019-11-09] MEDS ORDERED: MAG HYDROX/AL HYDROX/SIMETH SUSP 30 ML UDCUP PO PRN (01:21)
[2019-11-09] MEDS ORDERED: LORAZEPAM INJ 2 MG/1 ML VIAL IV PRN (01:21)
[2019-11-09] MEDS ORDERED: MELATONIN 5 MG TABLET PO PRN (01:21)
[2019-11-09] MEDS ORDERED: MORPHINE SULFATE 10 MG/ML INJ IV PRN (01:21)
[2019-11-09] MEDS ORDERED: LEVALBUTEROL HCL NEB 0.63 MG/3 ML AMPUL NEB PRN (01:21)
[2019-11-09] MEDS ORDERED: MAGNESIUM HYDROXIDE SUSP 30 ML UDCUP PO PRN (01:21)
[2019-11-09] MEDS ORDERED: NICOTINE 21 MG/24 HR PATCH.TD24 TD PRN (01:21)
[2019-11-09] MEDS ORDERED: ONDANSETRON HCL INJ/PF 4 MG/2 ML SDV IV PRN (01:22)
[2019-11-09] MEDS: APIXABAN 5 MG TABLET PO SCH ×3 (05:04→17:32)
[2019-11-09] MEDS ORDERED: DIAZEPAM INJ 10 MG/2 ML DISP.SYRIN IV PRN ×2 (05:18→12:27)
--- NOTE | 2019-11-09 05:21 | PDOC H&P ---
History of Present Illness Admission Date/PCP: 11/09/19 00:57 BRITNEY SOMMERS Past Medical History Cardiac Medical History: Reports: Hypertension Denies: Atrial Fibrillation, Congestive Heart Failure, Coronary Artery Disease, DVT, Myocardial Infarction, Hyperlipidema, Pulmonary Embolism Pulmonary Medical History: Denies: Asthma, Bronchitis, Chronic Obstructive Pulmonary Disease (COPD), Pneumonia EENT Medical History: Denies: Cataracts, Ears - Hearing aids Neurological Medical History: Denies: Hemorrhagic CVA, Ischemic CVA, Seizures Endocrine Medical History: Denies: Diabetes Mellitus Type 1, Diabetes Mellitus Type 2, Hyperthyroidism, Hypothyroidism Malignancy Medical History: Reports: None GI Medical History: Reports: Gastroesophageal Reflux Disease Denies: Cirrhosis, Crohn's Disease, Hepatitis, Peptic Ulcer Disease, Ulcerative Colitis Musculoskeltal Medical History: Reports: Arthritis, Other - Chronic back pain with sciatica Denies: Gout Skin Medical History: Denies: Eczema, Psoriasis Psychiatric Medical History: Reports: Bipolar Disorder, Depression, Schizoaffective Disorder, Substance Abuse, Tobacco Dependency Denies: Alcohol Dependency Traumatic Medical History: Reports: None Hematology: Denies: Anemia, Bleeding Tendencies Infectious Medical History: Reports: None Past Surgical History Past Surgical History: Reports: Orthopedic Surgery - left knee shrapnil removed Social History Smoking Status: Current Every Day Smoker Cigarettes Packs Per Day: 1 Electronic Cigarette use?: No Frequency of Alcohol Use: Heavy Hx Recreational Drug Use: Yes Drugs: Cocaine, Marijuana Hx Prescription Drug Abuse: No - Advance Directive Resuscitation Status: Full Code Family History Family History: Hypertension, Malignancy Medication/Allergy Home Medications: No Home Medications 08/21/19 Allergies/Adverse Reactions: aspirin Allergy (Unknown, Verified 08/21/19 10:36) GI upset Physical Exam Vital Signs: Temp Pulse Resp BP Pulse Ox 97.8 F 108 H 16 97/59 L 99 11/09/19 03:43 11/09/19 03:43 11/09/19 03:43 11/09/19 03:43 11/09/19 03:43 Intake & Output 11/07/19 11/08/19 11/09/19 23:59 23:59 23:59 Intake Total 1999 18 Balance 1999 18 Weight 94.9 kg Results Laboratory Results: 11/08/19 17:05 11/08/19 17:05 11/08/19 11/08/19 11/08/19 17:05 17:05 17:05 WBC 7.5 RBC 4.65 Hgb 14.0 Hct 40.6 MCV 87 MCH 30.1 MCHC 34.5 RDW 16.5 H Plt Count 188 Seg Neutrophils % 58.4 Carbonic Acid HCO3/H2CO3 Ratio ABG pH ABG pCO2 ABG pO2 ABG HCO3 ABG O2 Saturation ABG Base Excess FiO2 Sodium 138.2 Potassium 4.3 Chloride 106 Carbon Dioxide 20 L Anion Gap 12 BUN 22 H Creatinine 0.92 Est GFR ( Amer) > 60 Glucose 102 Calcium 9.3 Total Bilirubin 1.4 H AST 54 Alkaline Phosphatase 58 Total Protein 6.7 Albumin 4.1 TSH 0.95 Free T4 1.19 Free T3 pg/mL Urine Color Urine Appearance Urine pH Ur Specific [place] Urine Protein Urine Glucose (UA) Urine Ketones Urine Blood Urine Nitrite Ur Leukocyte Esterase Urine WBC (Auto) Urine RBC (Auto) 11/08/19 11/08/19 11/08/19 17:05 17:34 20:40 WBC RBC Hgb Hct MCV MCH MCHC RDW Plt Count Seg Neutrophils % Carbonic Acid 1.11 HCO3/H2CO3 Ratio 17:1 ABG pH 7.33 L ABG pCO2 36.9 ABG pO2 100.6 H ABG HCO3 19.1 L ABG O2 Saturation 97.3 ABG Base Excess -6.2 FiO2 2L Sodium Potassium Chloride Carbon Dioxide Anion Gap BUN Creatinine Est GFR ( Amer) Glucose Calcium Total Bilirubin AST Alkaline Phosphatase Total Protein Albumin TSH Cancelled Free T4 Free T3 pg/mL 3.72 Urine Color YELLOW Urine Appearance CLEAR Urine pH 5.0 Ur Specific [place] 1.015 Urine Protein 30 H Urine Glucose (UA) NEGATIVE Urine Ketones NEGATIVE Urine Blood NEGATIVE Urine Nitrite NEGATIVE Ur Leukocyte Esterase NEGATIVE Urine WBC (Auto) 1 Urine RBC (Auto) 0 11/08/19 11/08/19 11/08/19 17:05 17:05 23:14 Creatine Kinase 777 H Troponin I 0.018 0.016 11/08/19 23:14 Creatine Kinase 599 H Troponin I Impressions: Chest X-Ray 11/08/19 23:19 IMPRESSION: Possible emphysema. copyright 2010 [employer]- All Rights Reserved Assessment and Plan - Diagnosis (1) Atrial fibrillation with RVR Is this a current diagnosis for this admission?: Yes (2) Hypertension Qualifiers: Hypertension type: essential hypertension Qualified Code(s): I10 - Essential (primary) hypertension Is this a current diagnosis for this admission?: Yes (3) GERD (gastroesophageal reflux disease) Qualifiers: Esophagitis presence: with esophagitis Qualified Code(s): K21.0 - Gastro- esophageal reflux disease with esophagitis Is this a current diagnosis for this admission?: Yes (4) Chronic low back pain with sciatica Qualifiers: Back pain laterality: unspecified Sciatica laterality: sciatica laterality unspecified Qualified Code(s): M54.40 - Lumbago with sciatica, unspecified side; G89.29 - Other chronic pain Is this a current diagnosis for this admission?: Yes (5) Obesity Qualifiers: Obesity type: unspecified obesity type Obesity classification: adult class 1 (BMI 30 - 34.9) Body mass index: BMI 30.0-30.9 Is this a current diagnosis for this admission?: Yes (6) Schizoaffective disorder Qualifiers: Schizoaffective disorder type: bipolar Qualified Code(s): F25.0 - Schizoaffective disorder, bipolar type Is this a current diagnosis for this admission?: Yes (7) Tobacco use disorder, continuous Is this a current diagnosis for this admission?: Yes (8) Alcohol dependency Qualifiers: Substance use status: unspecified alcohol-induced disorder Qualified Code(s): F10.29 - Alcohol dependence with unspecified alcohol-induced disorder Is this a current diagnosis for this admission?: Yes - Plan Summary Summary: Patient will be admitted to the [facility] where he will receive routine supportive and symptomatic cares. He will be treated with a diltiazem infusion titrated to control his ventricular response rate to his atrial fibrillation rhythm. He will be seen in consultation by Dr. Gregg for cardiology. He will receive Valium 5 mg PO every 4 hours. He will receive morphine 2 to 4 mg IV every 2 hours as needed for pain. He will be placed on a cardiac diet. A thyroid profile, lipid profile and magnesium level will be obtained. CBCs, metabolic profiles and additional laboratory and/or radiographic evaluations will be obtained as needed. Smoking cessation is advised and counseled briefly at the bedside. A nicotine replacement patch is available for the patient's use, if desired.
[2019-11-09] MEDS ORDERED: DIAZEPAM 5 MG TABLET PO SCH (06:00)
[2019-11-09 06:10] LABS: CREATINE KINASE MB 6.37 ng/mL (<4.55); TROPONIN I 0.014 ng/mL
--- NOTE | 2019-11-09 06:54 | PDOC H&P ---
History of Present Illness Admission Date/PCP: 11/09/2019 00:50 BRITNEY SOMMERS Patient complains of: Chest tightness History of Present Illness: EMILIE LUCERO is a 54 year old male who presented emergency room with acute chest tightness. He admits the sudden onset of constant moderate tightness in his chest on the afternoon of 11/08/2019. The tightness in his chest did not radiate but was accompanied by dyspnea and was associated with generalized weakness, fatigue, malaise, generalized myalgia and a headache. His chronic back pain and sciatica symptoms have also increased since the onset of his chest tightness. He denies other associated or accompanying signs and symptoms. He denies prior similar episodes. He has not identified any aggravating or ameliorating factors for his chest tightness. In the emergency room he was found to have atrial fibrillation with a rapid ventricular response. He was treated with IV Cardizem and subsequently was admitted to the hospital for f urther evaluation and treatment. Past Medical History Cardiac Medical History: Reports: Hypertension Denies: Atrial Fibrillation, Congestive Heart Failure, Coronary Artery Disease, DVT, Myocardial Infarction, Hyperlipidema, Pulmonary Embolism Pulmonary Medical History: Denies: Asthma, Bronchitis, Chronic Obstructive Pulmonary Disease (COPD), Pneumonia EENT Medical History: Denies: Cataracts, Ears - Hearing aids Neurological Medical History: Denies: Hemorrhagic CVA, Ischemic CVA, Seizures Endocrine Medical History: Denies: Diabetes Mellitus Type 1, Diabetes Mellitus Type 2, Hyperthyroidism, Hypothyroidism Malignancy Medical History: Reports: None GI Medical History: Reports: Gastroesophageal Reflux Disease Denies: Cirrhosis, Crohn's Disease, Hepatitis, Peptic Ulcer Disease, Ulcerative Colitis Musculoskeltal Medical History: Reports: Arthritis, Other - Chronic back pain with sciatica, chronic neck pain Denies: Gout Skin Medical History: Denies: Eczema, Psoriasis Psychiatric Medical History: Reports: Bipolar Disorder, Depression, Schizoaffective Disorder, Substance Abuse, Tobacco Dependency Denies: Alcohol Dependency Traumatic Medical History: Reports: None Hematology: Denies: Anemia, Bleeding Tendencies Infectious Medical History: Reports: None Past Surgical History Past Surgical History: Reports: Orthopedic Surgery - left knee shrapnil removed Social History Information Source: Patient Lives with: Alone Smoking Status: Current Every Day Smoker Electronic Cigarette use?: No Frequency of Alcohol Use: Heavy Hx Recreational Drug Use: No Drugs: Cocaine, Marijuana Hx Prescription Drug Abuse: No - Advance Directive Resuscitation Status: Full Code Surrogate healthcare decision maker:: Fouzia Gonsales Family History Family History: CAD, DM, Hypertension. denies: Malignancy Parental Family History Reviewed: Yes Children Family History Reviewed: No Sibling(s) Family History Reviewed.: Yes Medication/Allergy Home Medications: No Home Medications 08/21/19 Allergies/Adverse Reactions: aspirin Allergy (Unknown, Verified 08/21/19 10:36) GI upset Review of Systems Constitutional: PRESENT: as per HPI, fatigue, headache(s), weakness - Generalized, other - Malaise, generalized myalgia. ABSENT: chills, fever(s) Eyes: ABSENT: visual disturbances, other - Eye pain Ears: ABSENT: hearing changes, other - Ear pain Nose, Mouth, and Throat: PRESENT: headache(s). ABSENT: sore throat Cardiovascular: PRESENT: as per HPI, chest pain. ABSENT: palpitations Respiratory: PRESENT: as per HPI, dyspnea. ABSENT: cough Gastrointestinal: ABSENT: abdominal pain, constipation, diarrhea, nausea, vomiting Genitourinary: ABSENT: dysuria, hematuria Musculoskeletal: PRESENT: as per HPI, back pain - With sciatica, muscle weakness Integumentary: ABSENT: pruritus, rash Neurological: ABSENT: confusion, convulsions, focal weakness, memory loss, syncope Psychiatric: ABSENT: anxiety, depression Endocrine: ABSENT: cold intolerance, heat intolerance Hematologic/Lymphatic: ABSENT: easy bleeding, easy bruising Allergic/Immunologic: ABSENT: seasonal rhinorrhea Physical Exam Vital Signs: Temp Pulse Resp BP Pulse Ox 98.2 F 130 H 26 H 105/81 94 11/08/19 20:01 11/08/19 16:07 11/09/19 00:16 11/09/19 00:16 11/09/19 00:16 Intake & Output 11/07/19 11/08/19 11/09/19 23:59 23:59 23:59 Intake Total 1999 Balance 1999 Weight 94.9 kg General appearance: PRESENT: no acute distress, cooperative, obese Head exam: PRESENT: atraumatic, normocephalic Eye exam: PRESENT: conjunctiva pink. ABSENT: conjunctival injection, scleral icterus Ear exam: PRESENT: normal external ear exam. ABSENT: bleeding, drainage Mouth exam: PRESENT: dry mucosa, neck supple Neck exam: ABSENT: thyromegaly, tracheal deviation Respiratory exam: PRESENT: clear to auscultation dangelo, symmetrical, unlabored Cardiovascular exam: PRESENT: irregular rhythm - Irregular irregular rate and rhythm. ABSENT: clicks, gallop, rubs Pulses: PRESENT: normal radial pulses, normal dorsalis pedis pul Vascular exam: PRESENT: normal capillary refill. ABSENT: pallor GI/Abdominal exam: PRESENT: normal bowel sounds, soft. ABSENT: tenderness Rectal exam: PRESENT: deferred Extremities exam: ABSENT: joint swelling, pedal edema Musculoskeletal exam: ABSENT: deformity, dislocation Neurological exam: PRESENT: alert, oriented to person, oriented to place, oriented to time, oriented to situation, CN II-XII grossly intact. ABSENT: motor sensory deficit Psychiatric exam: PRESENT: appropriate affect, normal mood Skin exam: PRESENT: dry, intact, warm. ABSENT: jaundice, rash, urticaria Results Laboratory Results: 11/08/19 17:05 11/08/19 17:05 11/08/19 11/08/19 11/08/19 17:05 17:05 17:05 WBC 7.5 RBC 4.65 Hgb 14.0 Hct 40.6 MCV 87 MCH 30.1 MCHC 34.5 RDW 16.5 H Plt Count 188 Seg Neutrophils % 58.4 Carbonic Acid HCO3/H2CO3 Ratio ABG pH ABG pCO2 ABG pO2 ABG HCO3 ABG O2 Saturation ABG Base Excess FiO2 Sodium 138.2 Potassium 4.3 Chloride 106 Carbon Dioxide 20 L Anion Gap 12 BUN 22 H Creatinine 0.92 Est GFR ( Amer) > 60 Glucose 102 Calcium 9.3 Total Bilirubin 1.4 H AST 54 Alkaline Phosphatase 58 Total Protein 6.7 Albumin 4.1 TSH 0.95 Free T4 1.19 Urine Color Urine Appearance Urine pH Ur Specific [place] Urine Protein Urine Glucose (UA) Urine Ketones Urine Blood Urine Nitrite Ur Leukocyte Esterase Urine WBC (Auto) Urine RBC (Auto) 11/08/19 11/08/19 17:34 20:40 WBC RBC Hgb Hct MCV MCH MCHC RDW Plt Count Seg Neutrophils % Carbonic Acid 1.11 HCO3/H2CO3 Ratio 17:1 ABG pH 7.33 L ABG pCO2 36.9 ABG pO2 100.6 H ABG HCO3 19.1 L ABG O2 Saturation 97.3 ABG Base Excess -6.2 FiO2 2L Sodium Potassium Chloride Carbon Dioxide Anion Gap BUN Creatinine Est GFR ( Amer) Glucose Calcium Total Bilirubin AST Alkaline Phosphatase Total Protein Albumin TSH Free T4 Urine Color YELLOW Urine Appearance CLEAR Urine pH 5.0 Ur Specific [place] 1.015 Urine Protein 30 H Urine Glucose (UA) NEGATIVE Urine Ketones NEGATIVE Urine Blood NEGATIVE Urine Nitrite NEGATIVE Ur Leukocyte Esterase NEGATIVE Urine WBC (Auto) 1 Urine RBC (Auto) 0 11/08/19 11/08/19 11/08/19 17:05 17:05 23:14 Creatine Kinase 777 H Troponin I 0.018 0.016 11/08/19 23:14 Creatine Kinase 599 H Troponin I Impressions: Chest X-Ray 11/08/19 23:19 IMPRESSION: Possible emphysema. copyright 2010 [employer]- All Rights Reserved Assessment and Plan - Diagnosis (1) Atrial fibrillation with RVR Is this a current diagnosis for this admission?: Yes (2) Hypertension Qualifiers: Hypertension type: essential hypertension Qualified Code(s): I10 - Essential (primary) hypertension Is this a current diagnosis for this admission?: Yes (3) GERD (gastroesophageal reflux disease) Qualifiers: Esophagitis presence: with esophagitis Qualified Code(s): K21.0 - Gastro- esophageal reflux disease with esophagitis Is this a current diagnosis for this admission?: Yes (4) Chronic low back pain with sciatica Qualifiers: Back pain laterality: unspecified Sciatica laterality: sciatica laterality unspecified Qualified Code(s): M54.40 - Lumbago with sciatica, unspecified side; G89.29 - Other chronic pain Is this a current diagnosis for this admission?: Yes (5) Obesity Qualifiers: Obesity type: unspecified obesity type Obesity classification: adult class 1 (BMI 30 - 34.9) Body mass index: BMI 30.0-30.9 Is this a current diagnosis for this admission?: Yes (6) Tobacco use disorder, continuous Is this a current diagnosis for this admission?: Yes (7) Schizoaffective disorder Qualifiers: Schizoaffective disorder type: bipolar Qualified Code(s): F25.0 - Bobby izoaffective disorder, bipolar type Is this a current diagnosis for this admission?: Yes (8) Alcohol dependency Qualifiers: Substance use status: unspecified alcohol-induced disorder Qualified Code(s): F10.29 - Alcohol dependence with unspecified alcohol-induced disorder Is this a current diagnosis for this admission?: Yes - Plan Summary Summary: Patient will be admitted to the [facility] where he will receive routine supportive a nd symptomatic cares. He will be treated with a diltiazem infusion titrated to control his ventricular response rate to his atrial fibrillation rhythm. He will be seen in consultation by Dr. Gregg for cardiology. He will receive Valium 5 mg PO every 4 hours. He will receive morphine 2 to 4 mg IV every 2 hours as needed for pain. He will be placed on a cardiac diet. A thyroid profile, lipid profile and magnesium level will be obtained. CBCs, metabolic profiles and additional laboratory and/or radiographic evaluations will be obtained as needed. Smoking cessation is advised and counseled briefly at the bedside. A nicotine replacement patch is available for the patient's use, if de sired. - Time Time Spent with patient: 15-24 minutes Smoking Cessation Education: 3 to 10 minutes Medications reviewed and adjusted accordingly: Yes Anticipated Discharge Disposition: Home, Self Care Anticipated Discharge Timeframe: within 72 hours - Inpatient Certification Based on my medical assessment, after consideration of the patient's comorbidities, presenting symptoms, or acuity I expect that the services needed warrant INPATIENT care.: Yes I certify that my determination is in accordance with my understanding of Medicare's requirements for reasonable and necessary INPATIENT services [42 CFR 412.3e].: Yes Medical Necessity: Need Close Monitoring Due to Risk of Patient Decompensation, Need For Continuous Telemetry Monitoring, Risk of Complication if Not Cared For in Hospital
--- NOTE | 2019-11-09 07:34 | PDOC CONSULTATION ---
Consultation Consult Date: 11/09/19 Attending physician:: FIDE HENNING Provider Consulted: MICHELLE STONE Consult reason:: Afib History of Present Illness Admission Date/PCP: 11/09/19 00:57 BRITNEY TIPTONPRADEEP History of Present Illness: The patient is a 54-year-old male with history of hypertension and substance abuse (marijuana, UDS positive for cocaine), smoker, alcohol use who is consulted to our service for evaluation of rapid atrial fibrillation. The patient was at the airport with a plan to travel however, when told the mckeon of the tickets, became upset and developed chest pain, back pain, and palpitations. In the emergency room he was found to be in rapid A. fib and was initially treated with a Cardizem drip however he dropped his pressures and the infusion was discontinued.. This morning he is sleeping comfortably and without cardiac complaints. His telemetry shows atrial fibrillation with occasional rapid ventricular response. Physical exam on 11/09/2019: GENERAL: Sleeping comfortably. Difficult to arouse and falls back asleep quickly. He has no complaints. Oriented x3 with normal mood. Not in acute distress. Well groomed and well developed. HEENT: Normocephalic, atraumatic. Sclerae anicteric. Oropharynx moist. NECK: No JVD. No carotid bruits. LUNGS: Clear to auscultation bilaterally. Normal respiratory effort without t he use of accessory muscles or intercostal retractions. CARDIOVASCULAR: Irregularly irregular rate and rhythm, normal S1 and S2 without murmurs, rubs, or gallops. PMI not displaced. ABDOMEN: No masses or tenderness to palpation. No bruit. No splenomegaly or hepatomegaly. No abdominal aorta bruit noted. EXTREMITIES: No edema, no cyanosis, no clubbing. +2 pulses femoral and pedal pulses bilaterally. SKIN: No lesions or rashes. MUSCULOSKELETAL: No chest tenderness to palpation. NEUROLOGIC: Nonfocal. No gross sensory or motor deficits bilateral upper or lower extremities. Past Medical History Cardiac Medical History: Reports: Hypertension Denies: Atrial Fibrillation, Congestive Heart Failure, Coronary Artery Disease, DVT, Myocardial Infarction, Hyperlipidema, Pulmonary Embolism Pulmonary Medical History: Denies: Asthma, Bronchitis, Chronic Obstructive Pulmonary Disease (COPD), Pneumonia EENT Medical History: Denies: Cataracts, Ears - Hearing aids Neurological Medical History: Denies: Hemorrhagic CVA, Ischemic CVA, Seizures Endocrine Medical History: Denies: Diabetes Mellitus Type 1, Diabetes Mellitus Type 2, Hyperthyroidism, Hypothyroidism Malignancy Medical History: Reports: None GI Medical History: Reports: Gastroesophageal Reflux Disease Denies: Cirrhosis, Crohn's Disease, Hepatitis, Peptic Ulcer Disease, Ulcerative Colitis Musculoskeltal Medical History: Reports: Arthritis, Other - Chronic back pain with sciatica Denies: Gout Skin Medical History: Denies: Eczema, Psoriasis Psychiatric Medical History: Reports: Bipolar Disorder, Depression, Schizoaffective Disorder, Substance Abuse, Tobacco Dependency Denies: Alcohol Dependency Traumatic Medical History: Reports: None Hematology: Denies: Anemia, Bleeding Tendencies Infectious Medical History: Reports: None Past Surgical History Past Surgical History: Reports: Orthopedic Surgery - left knee shrapnil removed Social History Smoking Status: Current Every Day Smoker Cigarettes Packs Per Day: 1 Electronic Cigarette use?: No Frequency of Alcohol Use: Heavy Hx Recreational Drug Use: Yes Drugs: Cocaine, Marijuana Hx Prescription Drug Abuse: No - Advance Directive Resuscitation Status: Full Code Family History Family History: Hypertension, Malignancy Parental Family History Reviewed: Yes Children Family History Reviewed: Yes Sibling(s) Family History Reviewed.: Yes Medication/Allergy Home Medications: No Home Medications 08/21/19 Allergies/Adverse Reactions: aspirin Allergy (Unknown, Verified 08/21/19 10:36) GI upset Physical Exam Vital Signs: Temp Pulse Resp BP Pulse Ox 97.8 F 108 H 16 97/59 L 99 11/09/19 03:43 11/09/19 03:43 11/09/19 03:43 11/09/19 03:43 11/09/19 03:43 Intake & Output 11/07/19 11/08/19 11/09/19 06:59 06:59 06:59 Intake Total 2017 Balance 2018 Weight 94.9 kg Results Laboratory Results: 11/08/19 17:05 11/08/19 17:05 11/08/19 11/08/19 11/08/19 17:05 17:05 17:05 WBC 7.5 RBC 4.65 Hgb 14.0 Hct 40.6 MCV 87 MCH 30.1 MCHC 34.5 RDW 16.5 H Plt Count 188 Seg Neutrophils % 58.4 Carbonic Acid HCO3/H2CO3 Ratio ABG pH ABG pCO2 ABG pO2 ABG HCO3 ABG O2 Saturation ABG Base Excess FiO2 Sodium 138.2 Potassium 4.3 Chloride 106 Carbon Dioxide 20 L Anion Gap 12 BUN 22 H Creatinine 0.92 Est GFR ( Amer) > 60 Glucose 102 Calcium 9.3 Total Bilirubin 1.4 H AST 54 Alkaline Phosphatase 58 Total Protein 6.7 Albumin 4.1 TSH 0.95 Free T4 1.19 Free T3 pg/mL Urine Color Urine Appearance Urine pH Ur Specific [place] Urine Protein Urine Glucose (UA) Urine Ketones Urine Blood Urine Nitrite Ur Leukocyte Esterase Urine WBC (Auto) Urine RBC (Auto) 11/08/19 11/08/19 11/08/19 17:05 17:34 20:40 WBC RBC Hgb Hct MCV MCH MCHC RDW Plt Count Seg Neutrophils % Carbonic Acid 1.11 HCO3/H2CO3 Ratio 17:1 ABG pH 7.33 L ABG pCO2 36.9 ABG pO2 100.6 H ABG HCO3 19.1 L ABG O2 Saturation 97.3 ABG Base Excess -6.2 FiO2 2L Sodium Potassium Chloride Carbon Dioxide Anion Gap BUN Creatinine Est GFR ( Amer) Glucose Calcium Total Bilirubin AST Alkaline Phosphatase Total Protein Albumin TSH Cancelled Free T4 Free T3 pg/mL 3.72 Urine Color YELLOW Urine Appearance CLEAR Urine pH 5.0 Ur Specific [place] 1.015 Urine Protein 30 H Urine Glucose (UA) NEGATIVE Urine Ketones NEGATIVE Urine Blood NEGATIVE Urine Nitrite NEGATIVE Ur Leukocyte Esterase NEGATIVE Urine WBC (Auto) 1 Urine RBC (Auto) 0 11/08/19 11/08/19 11/08/19 17:05 17:05 23:14 Creatine Kinase 777 H Troponin I 0.018 0.016 11/08/19 11/09/19 23:14 05:15 Creatine Kinase 599 H 474 H Troponin I Impressions: Chest X-Ray 11/08/19 23:19 IMPRESSION: Possible emphysema. copyright 2010 [employer]- All Rights Reserved 11/08/19 17:05 11/08/19 17:05 MCV 87 fl (80-97) 11/08/19 17:05 MCH 30.1 pg (27.0-33.4) 11/08/19 17:05 MCHC 34.5 g/dL (32.0-36.0) 11/08/19 17:05 RDW 16.5 % (11.5-14.0) H 11/08/19 17:05 Seg Neutrophils % 58.4 % (42-78) 11/08/19 17:05 Carbonic Acid 1.11 mmol/L (1.05-1.35) 11/08/19 20:40 HCO3/H2CO3 Ratio 17:1 11/08/19 20:40 ABG pH 7.33 (7.35-7.45) L 11/08/19 20:40 ABG pCO2 36.9 mmHg (35-45) 11/08/19 20:40 ABG pO2 100.6 mmHg (80-100) H 11/08/19 20:40 ABG HCO3 19.1 mmol/L (20-24) L 11/08/19 20:40 ABG O2 Saturation 97.3 % (94-98) 11/08/19 20:40 ABG Base Excess -6.2 mmol/L 11/08/19 20:40 FiO2 2L 11/08/19 20:40 Chloride 106 mmol/L (98-107) 11/08/19 17:05 Carbon Dioxide 20 mmol/L (22-30) L 11/08/19 17:05 Anion Gap 12 (5-19) 11/08/19 17:05 Est GFR ( Amer) > 60 (>60) 11/08/19 17:05 Glucose 102 mg/dL (75-110) 11/08/19 17:05 Calcium 9.3 mg/dL (8.4-10.2) 11/08/19 17:05 Total Bilirubin 1.4 mg/dL (0.2-1.3) H 11/08/19 17:05 AST 54 U/L (17-59) 11/08/19 17:05 Alkaline Phosphatase 58 U/L (38-126) 11/08/19 17:05 Total Protein 6.7 g/dL (6.3-8.2) 11/08/19 17:05 Albumin 4.1 g/dL (3.5-5.0) 11/08/19 17:05 TSH 0.95 uIU/mL (0.47-4.68) 11/08/19 17:05 TSH Cancelled 11/08/19 17:05 Free T4 1.19 ng/dL (0.78-2.19) 11/08/19 17:05 Free T3 pg/mL 3.72 pg/mL (2.77-5.27) 11/08/19 17:05 Urine Color YELLOW 11/08/19 17:34 Urine Appearance CLEAR 11/08/19 17:34 Urine pH 5.0 (5.0-9.0) 11/08/19 17:34 Ur Specific [place] 1.015 11/08/19 17:34 Urine Protein 30 mg/dL (NEGATIVE) H 11/08/19 17:34 Urine Glucose (UA) NEGATIVE mg/dL (NEGATIVE) 11/08/19 17:34 Urine Ketones NEGATIVE mg/dL (NEGATIVE) 11/08/19 17:34 Urine Blood NEGATIVE (NEGATIVE) 11/08/19 17:34 Urine Nitrite NEGATIVE (NEGATIVE) 11/08/19 17:34 Ur Leukocyte Esterase NEGATIVE (NEGATIVE) 11/08/19 17:34 Urine WBC (Auto) 1 /HPF 11/08/19 17:34 Urine RBC (Auto) 0 /HPF 11/08/19 17:34 11/08/19 11/08/19 11/08/19 17:05 17:05 23:14 Creatine Kinase 777 H CK-MB (CK-2) Troponin I 0.018 0.016 11/08/19 11/09/19 11/09/19 23:14 05:15 05:15 Creatine Kinase 599 H 474 H CK-MB (CK-2) 6.37 H Troponin I 0.014 Current Medication List Generic Name Dose Route Start Last Admin Trade Name Freq PRN Reason Stop Dose Admin Acetaminophen 650 mg 11/09/19 01:21 Tylenol 325 Mg Tablet PO 12/09/19 01:20 Q4HP PRN For headache, pain or fever Al Hydrox/Mg Hydrox/Simethicone 30 ml 11/09/19 01:21 Maalox Plus Susp 30 Udcup PO 12/09/19 01:20 Q6HP PRN HEARTBURN Apixaban 5 mg 11/09/19 01:45 11/09/19 05:04 Eliquis 5 Mg Tablet PO 12/09/19 01:44 Not Given BID MARBIN Diazepam 10 mg 11/09/19 05:18 Valium Inj 10 Mg/2 Ml Disp.Syrin IV 11/16/19 05:17 Q1HP PRN WITHDRAWAL SYMPTOMS Diazepam 10 mg 11/09/19 06:00 11/09/19 05:41 Valium 5 Mg Tablet PO 11/16/19 05:59 10 mg Q6 MARBIN Administration Docusate Sodium 100 mg 11/09/19 10:00 Colace 100 Mg Capsule PO 12/09/19 09:59 BID MARBIN Famotidine 20 mg 11/09/19 10:00 Pepcid 20 Mg Tablet PO 12/09/19 09:59 Q12 MARBIN Guaifenesin 200 mg 11/09/19 01:21 Robitussin Syrup 200 Mg/10 Ml Ud Cup PO 12/09/19 01:20 Q4HP PRN COUGH Diltiazem HCl 125 mg in 125 mls @ 0 mls/hr 11/09/19 01:20 Cardizem Rtu Inj 125 Mg-D5w 125 Ml Premix IV 12/09/19 01:19 CONTINUOUS PRN THIS MED IS NOT "PRN" Protocol Titrate Levalbuterol HCl 0.63 mg 11/09/19 01:21 Xopenex Neb 0.63 Mg/3 Ml Ampul NEB 12/09/19 01:20 RTQ2HP PRN SHORTNESS OF BREATH Magnesium Hydroxide 30 ml 11/09/19 01:21 Milk Of Magnesia 30 Ml Udcup PO 12/09/19 01:20 HSP PRN FOR CONSTIPATION Melatonin 5 mg 11/09/19 01:21 Melatonin 5 Mg Tablet PO 12/09/19 01:20 HSP PRN SLEEP OR INSOMNIA Morphine Sulfate 2 - 4 mg 11/09/19 01:21 Morphine 10 Mg/Ml Inj IV 11/16/19 01:20 Q2HP PRN See protocol Protocol Nicotine 1 each 11/09/19 01:21 Nicoderm 21 Mg/24 Hr Transderm Patch TD 12/09/19 01:20 DAILYP PRN WITHDRAWAL SYMPTOMS Ondansetron HCl 4 mg 11/09/19 01:22 Zofran Inj/Pf 4 Mg/2 Ml Sdv IV 12/09/19 01:21 Q4HP PRN FOR NAUSEA/VOMITING Sodium Chloride 2.5 ml 11/09/19 06:00 11/09/19 05:41 Saline Flush 2.5 Ml Monoject Prefil Syrin IV 12/09/19 05:59 2.5 ml Q8 MARBIN Administration Discontinued Medications Generic Name Dose Route Start Last Admin Trade Name Freq PRN Reason Stop Dose Admin Diltiazem HCl 20 mg 11/08/19 22:23 11/08/19 22:41 Cardizem Inj 25 Mg/5 Ml Vial IV 11/08/19 22:24 20 mg NOW ONE Administration Hydromorphone HCl 0.5 mg 11/08/19 17:10 11/08/19 17:28 Dilaudid Inj/Pf 2 Mg/Ml Ampule IV 11/08/19 17:11 0.5 mg NOW ONE Administration Sodium Chloride 1,000 mls @ 0 mls/hr 11/08/19 17:08 11/08/19 18:35 Nacl 0.9% 1000 Ml Iv Soln IV 11/08/19 17:09 Infused BOLUS ONE Infusion Wide Open Sodium Chloride 1,000 mls @ 0 mls/hr 11/08/19 19:05 11/08/19 19:55 Nacl 0.9% 1000 Ml Iv Soln IV 11/08/19 19:06 Infused BOLUS ONE Infusion Wide Open Diltiazem HCl 125 mg in 125 mls @ 0 mls/hr 11/08/19 22:24 11/09/19 03:20 Cardizem Rtu Inj 125 Mg-D5w 125 Ml Premix IV 12/08/19 22:23 0 mls/hr CONTINUOUS PRN 0 mls/hr THIS MED IS NOT "PRN" Titration Protocol Titrate Ketorolac Tromethamine 30 mg 11/08/19 23:09 11/08/19 23:28 Toradol Inj/Pf 30 Mg/1 Ml Sdv IV 11/08/19 23:10 30 mg NOW ONE Administration Lorazepam 1 mg 11/08/19 17:11 11/08/19 17:31 Ativan Inj 2 Mg/1 Ml Vial IV 11/08/19 17:12 1 mg NOW ONE Administration Lorazepam 1 mg 11/09/19 01:21 Ativan Inj 2 Mg/1 Ml Vial IV 11/16/19 01:20 Q4HP PRN ANXIETY/AGITATION Ondansetron HCl 4 mg 11/08/19 17:10 11/08/19 17:27 Zofran Inj/Pf 4 Mg/2 Ml Sdv IV 11/08/19 17:11 4 mg NOW ONE Administration Assessment & Plan - Diagnosis (1) Atrial fibrillation with RVR Is this a current diagnosis for this admission?: Yes Plan: His rate is currently controlled however he is sleeping. Upon awakening his heart rate jumps to the 120 bpm. His toxicology is positive for cocaine which may be the culprit of his atrial fibrillation. Troponins have been essentially negative x2 and normal thyroid function. His telemetry is consistent with atrial fibrillation without complex ventricular dysrhythmias. He is currently anticoagulated with Eliquis with a chads 2 vascular score of 1. Recommendations: -Avoid the use of non-dihydropyridine calcium channel blockers. -Echocardiogram to assess for structural heart disease. -Start metoprolol tartrate 25 mg p.o. every 6 hours as tolerated by his blood pressure. -We will consider NORM guided cardioversion if atrial fibrillation not responsive to rate control for now. (2) Hypertension Qualifiers: Hypertension type: essential hypertension Qualified Code(s): I10 - Essential (primary) hypertension Is this a current diagnosis for this admission?: Yes Plan: His pressures have been on the low side since admission probably from Cardizem drip. Recommendations: -Avoid calcium channel blockers for now. -Continue to monitor. -Further management per hospitalist team. (3) Drug use Plan: The patient needs counseling regarding his drug, tobacco and alcohol use. Will defer to primary team.
--- NOTE | 2019-11-09 08:43 | EKG REPORT ---
SEVERITY:- ABNORMAL ECG - ATRIAL FIBRILLATION, V-RATE 83-153 NONSPECIFIC T ABNORMALITIES, LATERAL LEADS : Confirmed by: Dm Cherry MD 09-Nov-2019 08:42:21
[2019-11-09] MEDS: DOCUSATE SODIUM 100 MG CAPSULE PO SCH ×2 (10:23→17:28)
[2019-11-09] MEDS: FAMOTIDINE 20 MG TABLET PO SCH ×2 (10:25→23:48)
[2019-11-09 12:15] LABS: CREATINE KINASE MB 6.77 ng/mL (<4.55)
[2019-11-09 12:19] LABS: TROPONIN I < 0.012 ng/mL
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
[2019-11-09] MEDS: METOPROLOL TARTRATE 25 MG TABLET PO SCH ×2 (13:48→17:32)
[2019-11-09] MEDS: DIAZEPAM 5 MG TABLET PO SCH ×2 (13:48→17:32)
[2019-11-09] MEDS ORDERED: LIDOCAINE 5% (700 MG) TRANSDERMAL ADH..PATCH TP ONE (14:30)
[2019-11-09] MEDS: KETOROLAC TROMETHAMINE INJ/PF 30 MG/1 ML SDV IV PRN ×2 (15:20→23:47)
[2019-11-09 17:47] LABS: CREATINE KINASE MB 6.13 ng/mL (<4.55)
[2019-11-09 17:55] LABS: TROPONIN I < 0.012 ng/mL
[2019-11-10] MEDS: DIAZEPAM 5 MG TABLET PO SCH ×2 (00:10→05:44)
[2019-11-10] MEDS: METOPROLOL TARTRATE 25 MG TABLET PO SCH ×2 (00:13→05:44)
[2019-11-10 07:09] LABS: HEMOGLOBIN 15.2 g/dL (13.5-17.0); MEAN CORPUSCULAR HEMOGLOBIN 30.5 pg (27.0-33.4); MEAN CORPUSCULAR HGB CONC 33.8 g/dL (32.0-36.0); MEAN CORPUSCULAR VOLUME 90 fl (80-97); PLATELET COUNT 176 10^3/uL (150-450); RED BLOOD COUNT 4.98 10^6/uL (4.35-5.55); RED CELL DISTRIBUTION WIDTH 16.7 % (11.5-14.0); WHITE BLOOD COUNT 6.5 10^3/uL (4.0-10.5)
[2019-11-10 07:35] LABS: ANION GAP 7 (5-19); BLOOD UREA NITROGEN 20 mg/dL (7-20); CALCIUM 9.1 mg/dL (8.4-10.2); CARBON DIOXIDE 24 mmol/L (22-30); CHLORIDE 105 mmol/L (98-107); CHOLESTEROL 137.69 mg/dL (0-200); GLUCOSE 100 mg/dL (75-110); POTASSIUM 4.9 mmol/L (3.6-5.0); TRIGLYCERIDES 97 mg/dL (<150)
[2019-11-10 07:46] LABS: DIRECT LDL 81 mg/dL (<100)
[2019-11-10] MEDS: KETOROLAC TROMETHAMINE INJ/PF 30 MG/1 ML SDV IV PRN (08:53)
[2019-11-10 09:12] VITALS: BP 109/82
[2019-11-10] MEDS: FAMOTIDINE 20 MG TABLET PO SCH (09:44)
[2019-11-10] MEDS: DOCUSATE SODIUM 100 MG CAPSULE PO SCH (09:44)
[2019-11-10] MEDS: APIXABAN 5 MG TABLET PO SCH (09:44)
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
--- NOTE | 2019-11-10 15:46 | PDOC DISCHARGE SUMMARY ---
Impression - Admit/DC Date/PCP Admission Date/Primary Care Provider: 11/09/19 00:57 BRITNEY SOMMERS Discharge Date: 11/10/19 - Discharge Diagnosis (2) Atrial fibrillation with RVR Is this a current diagnosis for this admission?: Yes - Additional Information Resuscitation Status: Full Code Referrals: BRITNEY SOMMERS MD [Primary Care Provider] - Follow up as needed Home Medications: No Home Medications 08/21/19 History of Present Illiness History of Present Illness: EMILIE LUCERO is a 54 year old male Admitted with atrial fibrillation with rapid regular response. Please see admitting history and physical for details Hospital Course Hospital Course: Patient was started on appropriate medications. He was seen by engineering specialist. Patient however decided to sign out AGAINST MEDICAL ADVICE before his treatment was completed. And the risk of leaving AMA but says he has to leave today infarct within the hour when I saw him Physical Exam Vital Signs: Temp Pulse Resp BP Pulse Ox 97.6 F 42 L 11 L 109/82 98 11/10/19 08:59 11/10/19 07:47 11/10/19 07:47 11/10/19 07:47 11/10/19 07:47 Intake & Output 11/09/19 11/10/19 11/11/19 06:59 06:59 06:59 Intake Total 2118 1260 Output Total 0 400 Balance 2118 860 Weight 96.2 kg 95.9 kg General appearance: PRESENT: cooperative Respiratory exam: PRESENT: clear to auscultation dangelo Cardiovascular exam: PRESENT: irregular rhythm, +S1, +S2 Neurological exam: PRESENT: alert, awake, oriented to person, oriented to place, oriented to time Results Laboratory Results: WBC 6.5 10^3/uL (4.0-10.5) 11/10/19 06:54 RBC 4.98 10^6/uL (4.35-5.55) 11/10/19 06:54 Hgb 15.2 g/dL (13.5-17.0) 11/10/19 06:54 Hct 45.0 % (37.9-51.0) 11/10/19 06:54 MCV 90 fl (80-97) 11/10/19 06:54 MCH 30.5 pg (27.0-33.4) 11/10/19 06:54 MCHC 33.8 g/dL (32.0-36.0) 11/10/19 06:54 RDW 16.7 % (11.5-14.0) H 11/10/19 06:54 Plt Count 176 10^3/uL (150-450) 11/10/19 06:54 Lymph % (Auto) 29.8 % (13-45) 11/08/19 17:05 Rankin % (Auto) 9.1 % (3-13) 11/08/19 17:05 Eos % (Auto) 2.0 % (0-6) 11/08/19 17:05 Baso % (Auto) 0.7 % (0-2) 11/08/19 17:05 Absolute Neuts (auto) 4.4 10^3/uL (1.7-8.2) 11/08/19 17:05 Absolute Lymphs (auto) 2.2 10^3/uL (0.5-4.7) 11/08/19 17:05 Absolute Monos (auto) 0.7 10^3/uL (0.1-1.4) 11/08/19 17:05 Absolute Eos (auto) 0.1 10^3/uL (0.0-0.6) 11/08/19 17:05 Absolute Basos (auto) 0.1 10^3/uL (0.0-0.2) 11/08/19 17:05 Seg Neutrophils % 58.4 % (42-78) 11/08/19 17:05 Carbonic Acid 1.11 mmol/L (1.05-1.35) 11/08/19 20:40 HCO3/H2CO3 Ratio 17:1 11/08/19 20:40 ABG pH 7.33 (7.35-7.45) L 11/08/19 20:40 ABG pCO2 36.9 mmHg (35-45) 11/08/19 20:40 ABG pO2 100.6 mmHg (80-100) H 11/08/19 20:40 ABG HCO3 19.1 mmol/L (20-24) L 11/08/19 20:40 ABG Total CO2 20.2 mmol/L (23-27) L 11/08/19 20:40 ABG O2 Saturation 97.3 % (94-98) 09/05/20 20:40 ABG Base Excess -6.2 mmol/L 11/08/19 20:40 FiO2 2L 11/08/19 20:40 Sodium 136.0 mmol/L (137-145) L 11/10/19 06:54 Potassium 4.9 mmol/L (3.6-5.0) 11/10/19 06:54 Chloride 105 mmol/L (98-107) 11/10/19 06:54 Carbon Dioxide 24 mmol/L (22-30) 11/10/19 06:54 Anion Gap 7 (5-19) 11/10/19 06:54 BUN 20 mg/dL (7-20) 11/10/19 06:54 Creatinine 0.85 mg/dL (0.52-1.25) 11/10/19 06:54 Est GFR ( Amer) > 60 (>60) 11/10/19 06:54 Est GFR (MDRD) Non-Af > 60 (>60) 11/10/19 06:54 Glucose 100 mg/dL (75-110) 11/10/19 06:54 Calcium 9.1 mg/dL (8.4-10.2) 11/10/19 06:54 Magnesium 1.9 mg/dL (1.6-2.3) 11/10/19 06:54 Total Bilirubin 1.4 mg/dL (0.2-1.3) H 11/08/19 17:05 Direct Bilirubin 0.4 mg/dL (0.0-0.4) 11/08/19 17:05 Neonat Total Bilirubin Not Reportable 11/08/19 17:05 Neonat Direct Bilirubin Not Reportable 11/08/19 17:05 Neonat Indirect Bili Not Reportable 11/08/19 17:05 AST 54 U/L (17-59) 11/08/19 17:05 ALT 30 U/L (<50) 11/08/19 17:05 Alkaline Phosphatase 58 U/L (38-126) 11/08/19 17:05 Creatine Kinase 361 U/L (55-170) H 11/09/19 16:52 CK-MB (CK-2) 6.13 ng/mL (<4.55) H 11/09/19 16:52 Troponin I < 0.012 ng/mL 11/09/19 16:52 Total Protein 6.7 g/dL (6.3-8.2) 11/08/19 17:05 Albumin 4.1 g/dL (3.5-5.0) 11/08/19 17:05 Triglycerides 97 mg/dL (<150) 11/10/19 06:54 Cholesterol 137.69 mg/dL (0-200) 11/10/19 06:54 LDL Cholesterol Direct 81 mg/dL (<100) 11/10/19 06:54 VLDL Cholesterol 19.0 mg/dL (10-31) 11/10/19 06:54 HDL Cholesterol 44 mg/dL (>40) 11/10/19 06:54 TSH 0.95 uIU/mL (0.47-4.68) 11/08/19 17:05 TSH Cancelled 11/08/19 17:05 Free T4 1.19 ng/dL (0.78-2.19) 11/08/19 17:05 Free T3 pg/mL 3.72 pg/mL (2.77-5.27) 11/08/19 17:05 Urine Color YELLOW 11/08/19 17:34 Urine Appearance CLEAR 11/08/19 17:34 Urine pH 5.0 (5.0-9.0) 11/08/19 17:34 Ur Specific [place] 1.015 11/08/19 17:34 Urine Protein 30 mg/dL (NEGATIVE) H 11/08/19 17:34 Urine Glucose (UA) NEGATIVE mg/dL (NEGATIVE) 11/08/19 17:34 Urine Ketones NEGATIVE mg/dL (NEGATIVE) 11/08/19 17:34 Urine Blood NEGATIVE (NEGATIVE) 11/08/19 17:34 Urine Nitrite NEGATIVE (NEGATIVE) 11/08/19 17:34 Urine Bilirubin NEGATIVE (NEGATIVE) 11/08/19 17:34 Urine Urobilinogen NEGATIVE mg/dL (<2.0) 11/08/19 17:34 Ur Leukocyte Esterase NEGATIVE (NEGATIVE) 11/08/19 17:34 Urine WBC (Auto) 1 /HPF 11/08/19 17:34 Urine RBC (Auto) 0 /HPF 11/08/19 17:34 U Hyaline Cast (Auto) 1 /LPF 11/08/19 17:34 Urine Mucus (Auto) RARE /LPF 11/08/19 17:34 Urine Ascorbic Acid NEGATIVE (NEGATIVE) 11/08/19 17:34 Urine Opiates Screen NEGATIVE 11/08/19 17:34 Urine Methadone Screen NEGATIVE 11/08/19 17:34 Ur Barbiturates Screen NEGATIVE 11/08/19 17:34 Ur Phencyclidine Scrn NEGATIVE 11/08/19 17:34 Ur Amphetamines Screen 11/08/19 17:34 U Benzodiazepines Scrn NEGATIVE 11/08/19 17:34 Urine Cocaine Screen UNCONFIRMED POSITIVE 11/08/19 17:34 U Marijuana (THC) Screen NEGATIVE 11/08/19 17:34 Serum Alcohol 72 mg/dL (NONE DETECTED) 11/08/19 17:05 11/08/19 11/08/19 11/09/19 17:05 23:14 05:15 CK-MB (CK-2) 6.37 H Troponin I 0.018 0.016 0.014 11/09/19 11/09/19 11:35 16:52 CK-MB (CK-2) 6.77 H 6.13 H Troponin I < 0.012 < 0.012 Impressions: Chest X-Ray 11/08/19 16:16 IMPRESSION: NO ACUTE RADIOGRAPHIC FINDING IN THE CHEST. Chest X-Ray 11/08/19 23:19 IMPRESSION: Possible emphysema. copyright 2010 [employer]- All Rights Reserved Plan Health Concerns: Patient advised to follow-up with his primary care physician for adequate treatment Not given any prescriptions as he signed out AGAINST MEDICAL ADVICE Time Spent: Less than 30 Minutes Stroke Is this a Stroke Patient?: No Acute Heart Failure - Is this a Heart Failure Patient?: No
--- NOTE | 2019-11-10 15:46 | Left Against Medical Advice ---
Against Medical Advice Admission Date/Time: 11/09/19 00:57 Primary Care Provider: BRITNEY SOMMERS Date of Patient Emigration: 11/10/19 - Diagnosis: (2) Atrial fibrillation with RVR Is this a current diagnosis for this admission?: Yes - Summary: Summary: Please see Admission and Progress Notes as well. EMILIE LUCERO is a 54 M, who LEFT AGAINST MEDICAL ADVICE. The Patient was admitted on 11/09/19 00:57.
== END 2019-11-10 09:54 | disposition left against medical advice (07) | DRG 310 ==
LOC: ER 16:01 → EH 11-09 00:57 → 3W 11-09 03:31
PROVIDERS: ADMIT Emergency Medicine; ATTEND Internal Medicine
DX: I48.91 Unspecified atrial fibrillation (principal); F14.90 Cocaine use, unspecified, uncomplicated; F10.20 Alcohol dependence, uncomplicated; F25.0 Schizoaffective disorder, bipolar type; M79.605 Pain in left leg; I10 Essential (primary) hypertension; K21.0 Gastro-esophageal reflux disease with esophagitis; F41.8 Other specified anxiety disorders; M54.40 Lumbago with sciatica, unspecified side; G89.29 Other chronic pain; F17.210 Nicotine dependence, cigarettes, uncomplicated; Y90.3 Blood alcohol level of 60-79 mg/100 ml; Z60.2 Problems related to living alone
CPT/HCPCS: 36415; 71045; 80048; 80053; 80061; 80307; 81001; 82550; 82553; 82803; 83735; 84439; 84443; 84481; 84484; 85025; 85027; 87086; 93005; 93010; 96361; 96365; 96366; 96375; 99285; J1170; J1885; J2060; J2270; J2405; J3360; J3490; J7030